=== PATIENT | female | born 1940 | race Caucasian/White ===

== ENCOUNTER 2016-09-28 09:55 | Inpatient (IN) | payer MEDICARE ==
[2016-09-28 10:09] LABS: Glucose,Whole Blood 542 mg/dL (75-99)
--- NOTE | 2016-09-28 10:10 | ED ---
Neuro HPI - General Stated Complaint: Altered Mental Status Time Seen by Provider: 09/28/16 09:55 Source: EMS, RN notes reviewed, old records reviewed Mode of arrival: EMS Limitations: altered mental status, physical limitation - History of Present Illness Is the patient presenting with stroke symptoms?: Yes Last Known Well Date: 09/27/16 Last Known Well Time: 20:00 Initial Comments: This is a 75-year-old female with a recent admission history for TIAs also a history of hypertension diabetes aortic stenosis who was last seen by her family around 8 PM last evening this morning she did not respond and family finder she was found to be minimally responsive of left lower and upper extremity weakness. She is brought in by EMS. Is no reports of any trauma. patient was reported have a blood sugar was markedly elevated. - Related Data Home Medications: Home Medications Medication Instructions Recorded Confirmed Insulin Glargine [Lantus] 40 unit SQ HS 07/17/15 09/28/16 INSULIN LISPRO (humaLOG) [humaLOG 12 units SQ AC-LUNCH 07/27/16 09/28/16 (formulary)] Lisinopril [Prinivil] 20 mg PO DAILY 07/27/16 09/28/16 Aspirin EC [Ecotrin] 325 mg PO HS 09/28/16 09/28/16 Previous Rx's Medication Instructions Recorded Nitroglycerin Sl Tabs [Nitrostat] 0.4 mg SUBLINGUAL Q5M PRN #25 tab 07/22/15 Atorvastatin [Lipitor] 40 mg PO DAILY #30 tab 07/30/16 Carvedilol [Coreg*] 25 mg PO BID-W/MEALS #60 tab 07/30/16 Clopidogrel [Plavix] 75 mg PO DAILY #30 tab 07/30/16 Allergies/Adverse Reactions: Allergies Allergy/AdvReac Type Severity Reaction Status Date / Time No Known Allergies Allergy Verified 07/27/16 19:27 Review of Systems ROS Statement: Those systems with pertinent positive or pertinent negative responses have been documented in the HPI. ROS Other: All systems not noted in ROS Statement are negative. Limitations: ROS unobtainable due to patients medical condition General Exam Limitations: altered mental status, physical limitation General appearance: alert, lethargic Head exam: Present: atraumatic, normocephalic, normal inspection Eye exam: Present: other (Patient does demonstrate right lateral gaze). Absent : normal appearance ENT exam: Present: mucous membranes dry Neck exam: Present: normal inspection. Absent: tenderness, meningismus, lymphadenopathy Respiratory exam: Present: normal lung sounds bilaterally. Absent: respiratory distress, wheezes, rales, rhonchi, stridor Cardiovascular Exam: Present: normal rhythm, tachycardia, normal heart sounds. Absent: systolic murmur, diastolic murmur, rubs, gallop, clicks GI/Abdominal exam: Present: soft, normal bowel sounds. Absent: distended, tenderness, guarding, rebound, rigid Rectal exam: Present: deferred Extremities exam: Present: normal capillary refill. Absent: normal inspection, full ROM Back exam: Present: normal inspection Neurological exam: Present: altered, motor sensory deficit. Absent: CN II-XII intact Psychiatric exam: Present: other (Unable to evaluate) Skin exam: Present: warm, dry, intact, normal color. Absent: rash Stroke [facility] - Lab Data Result diagrams: 09/28/16 10:02 09/28/16 10:02 Lab Results 09/28/16 09/28/16 09/28/16 Range/Units 09:59 10:02 10:02 WBC (3.8-10.6) k/uL RBC (3.80-5.40) m/uL Hgb (11.4-16.0) gm/dL Hct (34.0-46.0) % MCV (80.0-100.0) fL MCH (25.0-35.0) pg MCHC (31.0-37.0) g/dL RDW (11.5-15.5) % Plt Count (150-450) k/uL Neutrophils % % Lymphocytes % % Monocytes % % Eosinophils % % Basophils % % Neutrophils # (1.3-7.7) k/uL Lymphocytes # (1.0-4.8) k/uL Monocytes # (0-1.0) k/uL Eosinophils # (0-0.7) k/uL Basophils # (0-0.2) k/uL Hypochromasia PT (9.0-12.0) sec INR (<1.1) APTT (22.0-30.0) sec Sodium 143 (137-145) mmol/L Potassium 5.4 H (3.5-5.1) mmol/L Chloride 101 (98-107) mmol/L Carbon Dioxide 20 L (22-30) mmol/L Anion Gap 22 mmol/L BUN 29 H (7-17) mg/dL Creatinine 0.72 (0.52-1.04) mg/dL Est GFR (MDRD) Af Amer >60 (>60 ml/min/1.73 sqM) Est GFR (MDRD) Non-Af >60 (>60 ml/min/1.73 sqM) Glucose 549 H* (74-99) mg/dL POC Glucose (mg/dL) 542 H (75-99) mg/dL POC Glu Lacquer Mixer ID Fern Cruz Plasma Lactic Acid Antwon (0.7-2.0) mmol/L Calcium 10.4 H (8.4-10.2) mg/dL Magnesium 1.4 L (1.6-2.3) mg/dL Total Bilirubin 0.7 (0.2-1.3) mg/dL AST 18 (14-36) U/L ALT 26 (9-52) U/L Alkaline Phosphatase 102 (38-126) U/L Total Creatine Kinase 21 L (30-135) U/L CK-MB (CK-2) 0.8 (0.0-2.4) ng/mL CK-MB (CK-2) Rel Index 3.8 Troponin I <0.012 (0.000-0.034) ng/mL Total Protein 7.8 (6.3-8.2) g/dL Albumin 4.3 (3.5-5.0) g/dL Urine Color Urine Appearance (Clear) Urine pH (5.0-8.0) Ur Specific [place] (1.001-1.035) Urine Protein (Negative) Urine Glucose (UA) (Negative) Urine Ketones (Negative) Urine Blood (Negative) Urine Nitrate (Negative) Urine Bilirubin (Negative) Urine Urobilinogen (<2.0) mg/dL Ur Leukocyte Esterase (Negative) Urine RBC (0-5) /hpf Urine WBC (0-5) /hpf Urine Bacteria (None) /hpf Urine Mucus (None) /hpf Acetone, Qual Positive (Negative) Influenza Type A RNA (Not Detectd) Influenza Type B (PCR) (Not Detectd) 09/28/16 09/28/16 09/28/16 Range/Units 10:02 10:02 12:26 WBC 14.2 H (3.8-10.6) k/uL RBC 5.19 (3.80-5.40) m/uL Hgb 14.4 (11.4-16.0) gm/dL Hct 44.9 (34.0-46.0) % MCV 86.6 (80.0-100.0) fL MCH 27.7 (25.0-35.0) pg MCHC 32.0 (31.0-37.0) g/dL RDW 15.1 (11.5-15.5) % Plt Count 202 (150-450) k/uL Neutrophils % 88 % Lymphocytes % 8 % Monocytes % 2 % Eosinophils % 0 % Basophils % 1 % Neutrophils # 12.5 H (1.3-7.7) k/uL Lymphocytes # 1.1 (1.0-4.8) k/uL Monocytes # 0.2 (0-1.0) k/uL Eosinophils # 0.0 (0-0.7) k/uL Basophils # 0.2 (0-0.2) k/uL Hypochromasia Slight PT 10.1 (9.0-12.0) sec INR 1.0 (<1.1) APTT 20.8 L (22.0-30.0) sec Sodium (137-145) mmol/L Potassium (3.5-5.1) mmol/L Chloride (98-107) mmol/L Carbon Dioxide (22-30) mmol/L Anion Gap mmol/L BUN (7-17) mg/dL Creatinine (0.52-1.04) mg/dL Est GFR (MDRD) Af Amer (>60 ml/min/1.73 sqM) Est GFR (MDRD) Non-Af (>60 ml/min/1.73 sqM) Glucose (74-99) mg/dL POC Glucose (mg/dL) 478 H (75-99) mg/dL POC Glu Lacquer Mixer ID Cyn Dodd Plasma Lactic Acid Antwon (0.7-2.0) mmol/L Calcium (8.4-10.2) mg/dL Magnesium (1.6-2.3) mg/dL Total Bilirubin (0.2-1.3) mg/dL AST (14-36) U/L ALT (9-52) U/L Alkaline Phosphatase (38-126) U/L Total Creatine Kinase (30-135) U/L CK-MB (CK-2) (0.0-2.4) ng/mL CK-MB (CK-2) Rel Index Troponin I (0.000-0.034) ng/mL Total Protein (6.3-8.2) g/dL Albumin (3.5-5.0) g/dL Urine Color Urine Appearance (Clear) Urine pH (5.0-8.0) Ur Specific [place] (1.001-1.035) Urine Protein (Negative) Urine Glucose (UA) (Negative) Urine Ketones (Negative) Urine Blood (Negative) Urine Nitrate (Negative) Urine Bilirubin (Negative) Urine Urobilinogen (<2.0) mg/dL Ur Leukocyte Esterase (Negative) Urine RBC (0-5) /hpf Urine WBC (0-5) /hpf Urine Bacteria (None) /hpf Urine Mucus (None) /hpf Acetone, Qual (Negative) Influenza Type A RNA (Not Detectd) Influenza Type B (PCR) (Not Detectd) 09/28/16 09/28/16 09/28/16 Range/Units 12:35 12:35 12:35 WBC (3.8-10.6) k/uL RBC (3.80-5.40) m/uL Hgb (11.4-16.0) gm/dL Hct (34.0-46.0) % MCV (80.0-100.0) fL MCH (25.0-35.0) pg MCHC (31.0-37.0) g/dL RDW (11.5-15.5) % Plt Count (150-450) k/uL Neutrophils % % Lymphocytes % % Monocytes % % Eosinophils % % Basophils % % Neutrophils # (1.3-7.7) k/uL Lymphocytes # (1.0-4.8) k/uL Monocytes # (0-1.0) k/uL Eosinophils # (0-0.7) k/uL Basophils # (0-0.2) k/uL Hypochromasia PT (9.0-12.0) sec INR (<1.1) APTT (22.0-30.0) sec Sodium (137-145) mmol/L Potassium (3.5-5.1) mmol/L Chloride (98-107) mmol/L Carbon Dioxide (22-30) mmol/L Anion Gap mmol/L BUN (7-17) mg/dL Creatinine (0.52-1.04) mg/dL Est GFR (MDRD) Af Amer (>60 ml/min/1.73 sqM) Est GFR (MDRD) Non-Af (>60 ml/min/1.73 sqM) Glucose (74-99) mg/dL POC Glucose (mg/dL) (75-99) mg/dL POC Glu Lacquer Mixer ID Plasma Lactic Acid Antwon 2.3 H* (0.7-2.0) mmol/L Calcium (8.4-10.2) mg/dL Magnesium (1.6-2.3) mg/dL Total Bilirubin (0.2-1.3) mg/dL AST (14-36) U/L ALT (9-52) U/L Alkaline Phosphatase (38-126) U/L Total Creatine Kinase (30-135) U/L CK-MB (CK-2) (0.0-2.4) ng/mL CK-MB (CK-2) Rel Index Troponin I (0.000-0.034) ng/mL Total Protein (6.3-8.2) g/dL Albumin (3.5-5.0) g/dL Urine Color Light Yellow Urine Appearance Clear (Clear) Urine pH 5.5 (5.0-8.0) Ur Specific [place] 1.019 (1.001-1.035) Urine Protein 2+ H (Negative) Urine Glucose (UA) 4+ H (Negative) Urine Ketones 2+ H (Negative) Urine Blood Small H (Negative) Urine Nitrate Negative (Negative) Urine Bilirubin Negative (Negative) Urine Urobilinogen <2.0 (<2.0) mg/dL Ur Leukocyte Esterase Small H (Negative) Urine RBC 17 H (0-5) /hpf Urine WBC 23 H (0-5) /hpf Urine Bacteria Rare H (None) /hpf Urine Mucus Rare H (None) /hpf Acetone, Qual (Negative) Influenza Type A RNA Not Detected (Not Detectd) Influenza Type B (PCR) Not Detected (Not Detectd) 09/28/16 Range/Units 13:37 WBC (3.8-10.6) k/uL RBC (3.80-5.40) m/uL Hgb (11.4-16.0) gm/dL Hct (34.0-46.0) % MCV (80.0-100.0) fL MCH (25.0-35.0) pg MCHC (31.0-37.0) g/dL RDW (11.5-15.5) % Plt Count (150-450) k/uL Neutrophils % % Lymphocytes % % Monocytes % % Eosinophils % % Basophils % % Neutrophils # (1.3-7.7) k/uL Lymphocytes # (1.0-4.8) k/uL Monocytes # (0-1.0) k/uL Eosinophils # (0-0.7) k/uL Basophils # (0-0.2) k/uL Hypochromasia PT (9.0-12.0) sec INR (<1.1) APTT (22.0-30.0) sec Sodium (137-145) mmol/L Potassium (3.5-5.1) mmol/L Chloride (98-107) mmol/L Carbon Dioxide (22-30) mmol/L Anion Gap mmol/L BUN (7-17) mg/dL Creatinine (0.52-1.04) mg/dL Est GFR (MDRD) Af Amer (>60 ml/min/1.73 sqM) Est GFR (MDRD) Non-Af (>60 ml/min/1.73 sqM) Glucose (74-99) mg/dL POC Glucose (mg/dL) 463 H (75-99) mg/dL POC Glu Lacquer Mixer ID Cyn Dodd Plasma Lactic Acid Antwon (0.7-2.0) mmol/L Calcium (8.4-10.2) mg/dL Magnesium (1.6-2.3) mg/dL Total Bilirubin (0.2-1.3) mg/dL AST (14-36) U/L ALT (9-52) U/L Alkaline Phosphatase (38-126) U/L Total Creatine Kinase (30-135) U/L CK-MB (CK-2) (0.0-2.4) ng/mL CK-MB (CK-2) Rel Index Troponin I (0.000-0.034) ng/mL Total Protein (6.3-8.2) g/dL Albumin (3.5-5.0) g/dL Urine Color Urine Appearance (Clear) Urine pH (5.0-8.0) Ur Specific [place] (1.001-1.035) Urine Protein (Negative) Urine Glucose (UA) (Negative) Urine Ketones (Negative) Urine Blood (Negative) Urine Nitrate (Negative) Urine Bilirubin (Negative) Urine Urobilinogen (<2.0) mg/dL Ur Leukocyte Esterase (Negative) Urine RBC (0-5) /hpf Urine WBC (0-5) /hpf Urine Bacteria (None) /hpf Urine Mucus (None) /hpf Acetone, Qual (Negative) Influenza Type A RNA (Not Detectd) Influenza Type B (PCR) (Not Detectd) - NIH Stroke Scale 1a. Level of Consciousness: (2) not alert, rep stimuli 1b. LOC Questions: (2) answers no questions correctly 1c. LOC Commands: (2) performs no tasks correctly 2. Best Gaze: (2) forced deviation 3. Visual: (1) partial hemianopia 4. Facial Palsy: (1) minor paralysis 5a. Motor Arm Left: (4) no movement 5b. Motor Arm Right: (0) no drift 6a. Motor Leg Left: (3) no gravity effort 6b. Motor Leg Right: (3) no gravity effort 7. Limb Ataxia: (0) absent 8. Sensory: (2) severe/total sensory loss 9. Best Language: (2) severe aphasia 10. Dysarthria: (un) intubated/barrier 11. Extinction/Inattention: (0) no abnormality - Thrombolytic Inclusion/Exclusion Thrombolytic Exclusion Criteria: Onset of Symptoms Unknown - Medical Decision Making I did discuss the findings with the patient and with her family members. Patient will be admitted to be admitted to intensive care unit did discuss this with Dr. Houser and Dr. Lockwood. - EKG Data -: EKG Interpreted by Me EKG shows normal: sinus rhythm (Sinus tachycardia with a rate of 118. 150 QRS duration 86 daily since QTC of 322/451 evidence a left anterior fascicular block old inferior changes no acute ST T wave elevations or depressions) Past Medical History Past Medical History: Diabetes Mellitus, Hypertension Additional Past Medical History / Comment(s): AORTIC STENOSIS History of Any Multi-Drug Resistant Organisms: None Reported Past Surgical History: Adenoidectomy, Appendectomy, Cholecystectomy, Heart Catheterization With Stent, Hernia Repair, Tonsillectomy Additional Past Surgical History / Comment(s): Bilateral cataract removal and lens implants, umbilical hernia repair. 04/26/15 RIGHT GREAT TOE AMPUTATION. Past Anesthesia/Blood Transfusion Reactions: No Reported Reaction Additional Past Anesthesia/Blood Transfusion Reaction / Comment(s): no reported recation Date of Last Stent Placement:: 2009 Past Psychological History: No Psychological Hx Reported Smoking Status: Former smoker Past Alcohol Use History: None Reported Additional Past Alcohol Use History / Comment(s): Patient was a smoker for 18 years and quit when she was 40. She denies any medical marijuana, marijuana, street drug use or alcohol use. Patient lives at home and her son and granddaughter live with her. There are 2 dogs in the home. She denies any recent travel. 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 Past Drug Use History: None Reported Additional Drug Use History / Comment(s): STARTED SMOKING AT AGE 22 YRS, QUIT AT AGE 40YRS. - Past Family History Mother History Unknown: Yes Family Medical History: Cancer Father History Unknown: Yes Family Medical History: Coronary Artery Disease (CAD), Diabetes Mellitus Course Vital Signs 09/28/16 09/28/16 09/28/16 10:17 10:25 11:40 Temperature 99.6 F 101.9 F H Pulse Rate 118 H 96 Respiratory 14 18 Rate Blood Pressure 234/110 181/80 O2 Sat by Pulse 95 93 L Oximetry 09/28/16 09/28/16 09/28/16 12:40 12:59 13:40 Temperature 102.5 F H 102.1 F H Pulse Rate 96 98 Respiratory 20 18 Rate Blood Pressure 199/84 185/81 160/67 O2 Sat by Pulse 94 L 95 Oximetry - Reevaluation(s) Reevaluation #1: 09/28/16 14:12 Reevaluation after return from CAT scan reveals some improvement in the patient' s mentation. Reevaluation #2: 09/28/16 14:13 Did reevaluate the patient multiple occasions and did discuss findings with her sons. On discussion with one son (Ed) revealed the patient was no code and no event unless it was a very short time in for a reversible reason Reevaluation #3: 09/28/16 14:[address] in the x-ray show no acute findings Reevaluation #4: 09/28/16 14:20 The patient's lactic acid was noted to be slightly elevated there does not appear at this time to be an infectious source however x-ray urine is unremarkable. Influenza is negative. This is likely due to volume depletion. Reevaluation #5: 09/28/16 14:21 Patient is improving she is more responsive more facial movement the right lateral gaze has improved Critical Care Time Critical Care Time: Yes Critical Care Time: 49 minutes of critical care time which included the initial monitoring of the EMS run and evaluation the patient with history physical lab and x-rays as well as CAT scan orders. This with paramedics. Multiple re-evaluations the patient. Patient did demonstrate improvement should be noted. Discussed with the family members including the CODE STATUS. Discussion with the admitting physician and the flame degreaser. Patient will be admitted with consultation by neurology. Disposition Clinical Impression: Cerebrovascular accident, Diabetic ketoacidosis, Febrile illness, acute, Febrile illness, acute, Lactic acidosis Disposition: ADMITTED IP TO THIS HOSP Condition: Serious
[2016-09-28 10:19] LABS: Basophils # (A) 0.2 k/uL (0-0.2); Basophils % (A) 1 %; CH 27.1; CHCM 31.4; Eosinophils % (A) 0 %; HCT 44.9 % (34.0-46.0); HDW 2.75; HGB 14.4 gm/dL (11.4-16.0); Hypochromasia Slight; Luc # (Auto) 0.14; Luc % (Auto) 1; Lymphocytes # (A) 1.1 k/uL (1.0-4.8); Lymphocytes % (A) 8 %; MCH 27.7 pg (25.0-35.0); MCV 86.6 fL (80.0-100.0); Mean Platelet Volume 10.2; Monocytes # (A) 0.2 k/uL (0-1.0); Monocytes % (A) 2 %; Neutrophils # (A) 12.5 k/uL (1.3-7.7); Neutrophils % (A) 88 %; RBC 5.19 m/uL (3.80-5.40); RDW 15.1 % (11.5-15.5); WBC 14.2 k/uL (3.8-10.6); WBC (Perox) 14.18
[2016-09-28] MEDS ORDERED: SODIUM CHLORIDE 0.9% 500 ML IV STA (10:19)
[2016-09-28] MEDS ORDERED: LABETALOL SYRINGE 5 MG/ML IVP STA ×2 (10:19→10:47)
--- NOTE | 2016-09-28 10:32 | CT ---
EXAMINATION TYPE: CT brain wo con for TPA DATE OF EXAM: 09/28/2016 10:19 AM COMPARISON: Prior CT brain 20 July 2016 HISTORY: Decreased mental status. History of CVA CT DLP: 1247 mGycm Automated exposure control for dose reduction was used. FINDINGS: There is no acute intracranial hemorrhage, mass effect, or midline shift identified. The ventricles and sulci are within normal limits in size. There is cortical atrophy. Periventricular white matter l ow-attenuation is again noted. The globes are intact and the visualized sinuses are remarkable for op acification of the left maxillary sinus. IMPRESSION: No acute intracranial hemorrhage, mass effect, or midline shift is seen.
[2016-09-28 10:34] LABS: Partial Thromboplastin Time 20.8 sec (22.0-30.0); Prothrombin Time 10.1 sec (9.0-12.0)
[2016-09-28 10:41] LABS: ALT 26 U/L (9-52); AST 18 U/L (14-36); Alkaline Phosphatase 102 U/L (38-126); Anion Gap 22 mmol/L; Blood Urea Nitrogen 29 mg/dL (7-17); Calcium 10.4 mg/dL (8.4-10.2); Carbon Dioxide 20 mmol/L (22-30); Chloride 101 mmol/L (98-107); Magnesium 1.4 mg/dL (1.6-2.3); Non-African American GFR(MDRD) >60 (>60 ml/min/1.73 sqM); Potassium 5.4 mmol/L (3.5-5.1); Sodium 143 mmol/L (137-145); Total Bilirubin 0.7 mg/dL (0.2-1.3); Total Protein 7.8 g/dL (6.3-8.2)
[2016-09-28 10:46] LABS: Creatine Kinase 21 U/L (30-135)
[2016-09-28] MEDS ORDERED: SODIUM CHLORIDE 0.9% 1,000 ML IV STA (10:46)
[2016-09-28 10:50] LABS: Glucose 549 mg/dL (74-99)
[2016-09-28 10:59] LABS: Creatine Kinase MB 0.8 ng/mL (0.0-2.4); Troponin I <0.012 ng/mL (0.000-0.034)
[2016-09-28] MEDS ORDERED: INSULIN REGULAR 100 UNIT in SODIUM CHLORIDE 0.9% 100 ML IV ONE (11:18)
--- NOTE | 2016-09-28 11:21 | XR ---
EXAMINATION TYPE: XR chest 1V DATE OF EXAM: 09/28/2016 11:10 AM COMPARISON: Prior chest x-ray July HISTORY: Altered mental status TECHNIQUE: Single frontal view of the chest is obtained. FINDINGS: Patient is rotated and there are overlying cardiac leads. No airspace disease, pneumothora x, or pleural effusion. Cardiac mediastinal silhouette, pulmonary vascularity and sajan are stable. IMPRESSION: No acute process.
[2016-09-28] MEDS ORDERED: ACETAMINOPHEN IV (For NPO) 1,000 MG in EMPTY BAG 1 BAG IVPB STA (11:42)
[2016-09-28] MEDS ORDERED: MAGNESIUM SULFATE-D5W PMX 1 GM in DEXTROSE/WATER 1 100ML.BAG IVPB ONE (12:00)
[2016-09-28] MEDS: SODIUM CHLORIDE 0.9% 1,000 ML IV SCH ×2 (12:30→21:23)
[2016-09-28 12:36] LABS: Glucose,Whole Blood 478 mg/dL (75-99)
[2016-09-28 13:06] LABS: Appearance,Urine Clear (Clear); Bacteria,Urine Rare /hpf; Bilirubin,Urine Negative (Negative); Glucose,Urine (UA) 4+ (Negative); Leukocyte Esterase,Urine Small (Negative); Mucus,Urine Rare /hpf; Nitrite,Urine Negative (Negative); PH, Urine 5.5 (5.0-8.0); Particle Count 1163; Protein,Urine 2+ (Negative); RBC,Urine 17 /hpf (0-5); Specific Gravity,Urine 1.019 (1.001-1.035); UA Billing (MACRO vs. MICRO) MICRO; Urobilinogen,Urine <2.0 mg/dL (<2.0); WBC,Urine 23 /hpf (0-5)
[2016-09-28 13:18] LABS: Ketones,Urine 2+ (Negative)
[2016-09-28 13:47] LABS: Glucose,Whole Blood 463 mg/dL (75-99)
[2016-09-28 15:05] LABS: Glucose,Whole Blood 443 mg/dL (75-99)
[2016-09-28 15:53] LABS: Glucose,Whole Blood 401 mg/dL (75-99)
[2016-09-28 17:12] LABS: Glucose,Whole Blood 342 mg/dL (75-99)
--- NOTE | 2016-09-28 17:51 | P.CNPUL ---
History of Present Illness Consult date: 09/28/16 Requesting physician: Josiah Houser Reason for consult: other (Acute CVA) Chief complaint: Mental status change History of present illness: This is a 75-year-old female with history of multiple medical problems including hypertension, diabetes, hyperlipidemia, valvular heart disease with moderate severe aortic based on a recent echocardiogram, stenosis, history of multiple transient ischemic attacks, and the last one was in late July of 2016. Back then the patient had extensive workup included CT angiogram of the neck, echocardiogram, CT head, MRI, MRA, and these were all negative. At that time the patient presented with expressive aphasia, slurred speech, patient was eventually discharged home on Plavix. Patient normally lives with her son and his girlfriend, and today he tried to get into the house, patient was inside the house and she was unresponsive. When the police and family members entered the house, she was found unresponsive, she was noted to have left upper and left lower extremity weakness. And she was obtunded. Patient was brought into the ER, CT of the brain was negative. Blood sugar was elevated, patient had positive ketones, hence the patient was placed on the DKA protocol, received fluid boluses, and now she is on insulin drip. Her mental status is not improving much since arrival to the ER, patient is unresponsive except once in a while she may open her eyes, but they seem to be deviated to the right side. Continues to have significant weakness on the left side. And patient is not following any instructions whatsoever. Pupils are reactive. Patient has a good gag reflex, and she has a left sided miguel-plegia. Review of Systems ROS unobtainable: due to mental status Past Medical History Past Medical History: Coronary Artery Disease (CAD), Chest Pain / Angina, COPD, Diabetes Mellitus, Hypertension Additional Past Medical History / Comment(s): Pt admitted to [facility] with slurred speech, expressive aphasia 2ndary to TIA which resolved. During that hospitalization, son states pt had problems with "sun downers" and got up in the night and walked around, AORTIC STENOSIS, murmur, IDDM type II, peripheral neuropathy, UTIs, diverticular disease, hemorrhoids, varicosities, arthritis-c/ o hip pain, past osteomylitis R great toe with toe amputation History of Any Multi-Drug Resistant Organisms: None Reported Past Surgical History: Adenoidectomy, Appendectomy, Cholecystectomy, Heart Catheterization With Stent, Hernia Repair, Tonsillectomy Additional Past Surgical History / Comment(s): Bilateral cataract removal and lens implants, laser eye surgery, umbilical hernia repair, 04/26/15 RIGHT GREAT TOE AMPUTATION, colonoscopy. Past Anesthesia/Blood Transfusion Reactions: No Reported Reaction Additional Past Anesthesia/Blood Transfusion Reaction / Comment(s): no reported recation Date of Last Stent Placement:: 2009 Past Psychological History: No Psychological Hx Reported Additional Psychological History / Comment(s): Pt's son and granddaughter live with her. She uses a rolling walker to ambulate. She no longer drives-her son takes her to [employer]. She has just been set up with [id number]. There are 2 dogs in the house. No recent travel. 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 Smoking Status: Former smoker Past Alcohol Use History: None Reported Additional Past Alcohol Use History / Comment(s): Patient was a smoker for 18 years and quit when she was 40. Past Drug Use History: None Reported Additional Drug Use History / Comment(s): STARTED SMOKING AT AGE 22 YRS, QUIT AT AGE 40YRS. - Past Family History Mother History Unknown: Yes Family Medical History: Cancer Father History Unknown: Yes Family Medical History: Coronary Artery Disease (CAD), Diabetes Mellitus Medications and Allergies Home Medications Medication Instructions Recorded Confirmed Type Insulin Glargine [Lantus] 40 unit SQ HS 07/17/15 09/28/16 History INSULIN LISPRO (humaLOG) [humaLOG 12 units SQ AC-LUNCH 07/27/16 09/28/16 History (formulary)] Lisinopril [Prinivil] 20 mg PO DAILY 07/27/16 09/28/16 History Aspirin EC [Ecotrin] 325 mg PO HS 09/28/16 09/28/16 History Allergies Allergy/AdvReac Type Severity Reaction Status Date / Time No Known Allergies Allergy Verified 07/27/16 19:27 Physical Exam Vitals: Vital Signs Temp Pulse Resp BP Pulse Ox 09/28/16 16:45 99 30 H 142/68 93 L 09/28/16 16:30 98 24 146/57 93 L 09/28/16 16:15 99 33 H 128/58 97 09/28/16 16:03 96 09/28/16 16:00 99 24 154/63 92 L 09/28/16 15:53 101 H 16 154/63 98 09/28/16 14:45 99 18 166/72 93 L 09/28/16 14:40 98.8 F 99 18 166/72 95 Intake and Output 09/28/16 09/28/16 09/28/16 06:59 14:59 22:59 Intake Total 4.444 131.902 Output Total 200 Balance 4.444 -68.098 Intake: IV 125 Sodium Chloride 0.9% 1, 125 000 ml @ 125 mls/hr IV . Q8H TAMIKO Rx#:[id number] Intake, IV Titration 4.444 6.902 Amount Insulin Regular 100 unit 4.444 6.902 In Sodium Chloride 0.9% 100 ml @ 3 UNIT/HR 3.03 mls/hr IV .Q24H ONE Rx#: [id number] Output: Urine 200 Other: Weight 78.6 kg Patient Weight 09/29/16 06:59 Weight 78.6 kg Physical Exam: Revealed a 75-year-old female, obtunded, pupils equally reactive to light, both eyes are deviated to the right side good gag reflex, HEENT:[Neck is supple.] [No neck masses.] [No thyromegaly.] [No JVD.] Good gag reflex was noted. Chest: [Clear throughout, no crackles, no rhonchi, no wheezes.] Cardiac Exam: [Normal S1 and S2, no S3 gallop, no murmur.] Abdomen: [Soft, nontender, no megaly, no rebound, no guarding, normal bowel sounds.] Extremities: [No clubbing, no edema, no cyanosis.] Neurological Exam: Dense left-sided hemiplegia was noted. Pupils equally reactive to light deviation of both eyes to the right side. Unable to follow any instructions. Results - Laboratory Findings CBC and BMP: 09/28/16 10:02 09/28/16 10:02 PT/INR, D-dimer PT 10.1 sec (9.0-12.0) 09/28/16 10:02 INR 1.0 (<1.1) 09/28/16 10:02 Abnormal lab findings: Abnormal Labs 09/28/16 09/28/16 09/28/16 14:45 15:51 17:11 POC Glucose (mg/dL) 443 H 401 H 342 H - Diagnostic Findings Chest x-ray: image reviewed (No evidence of active disease) Additional studies: CT brain showed no intracranial hemorrhage, no mass effect, no abnormality noted except for some cortical atrophy. Assessment and Plan Plan: Impression: 1 acute right hemispheric CVA with left-sided weakness. 2 acute diabetic ketoacidosis 3 acute urinary tract infection is suspected 4 history of multiple comorbidities including previous TIAs, severe aortic stenosis, hypertension, hyperlipidemia, diabetes, Recommendation: Continue present treatment plan, neurology consultation was initiated, follow the DKA protocol, empiric antibiotics for presumptive urinary tract infection, close monitoring in the ICU. GI and DVT prophylaxis. Neuro checks every one hour, Discussed CODE STATUS with the family at bedside, patient is DO NOT RESUSCITATE at present. This is based on her previously expressed wishes and the wishes of her son. Prognosis is guarded, will continue to follow. Critical care time is 32 minutes Time with Patient: Greater than 30
[2016-09-28 18:43] LABS: Glucose,Whole Blood 270 mg/dL (75-99)
[2016-09-28 20:09] LABS: Glucose,Whole Blood 183 mg/dL (75-99)
[2016-09-28] MEDS: PANTOPRAZOLE 40 MG/10 ML VIAL IVP SCH (20:25)
[2016-09-28] MEDS ORDERED: D5-0.45% NACL WITH KCL 20MEQ/L 1,000 ML IV SCH (20:30)
[2016-09-28 21:04] LABS: Glucose,Whole Blood 143 mg/dL (75-99)
[2016-09-28 21:13] LABS: Anion Gap 14 mmol/L; Blood Urea Nitrogen 35 mg/dL (7-17); Carbon Dioxide 23 mmol/L (22-30); Chloride 110 mmol/L (98-107); Glucose 165 mg/dL (74-99); Non-African American GFR(MDRD) >60 (>60 ml/min/1.73 sqM); Phosphorous 2.7 mg/dL (2.5-4.5); Potassium 4.2 mmol/L (3.5-5.1); Sodium 147 mmol/L (137-145)
[2016-09-28] MEDS ORDERED: ACETAMINOPHEN IV (For NPO) 1,000 MG in EMPTY BAG 1 BAG IVPB ONE (21:30)
--- NOTE | 2016-09-28 21:55 | P.CNNES ---
History of Present Illness Consult date: 09/28/16 Reason for Consult: Patient found unresponsive with DKA and possible stroke. History of Present Illness: This patient is a 75-year-old right-handed white female who apparently was last known to be alert and oriented at 8 PM yesterday evening. Apparently she had talked to her family around that time. This morning the son had called the home and there was no response. He went to check on her apparently EMS was also called as well as a fire Department. She was found collapsed in her home. The please were able to break the door down and they were able to get in to assist her. She was noted to have left-sided weakness on initial evaluation by EMS. She was very lethargic and obtunded. EMS was at the scene and immediately assisted her and brought her immediately to the emergency room for further evaluation. She was seen in the ER by Dr. Fowler. She was noted to have obtundation with elevated lactic acid levels. Laboratory testing revealed her to have evidence of diabetic ketoacidosis. She was started on an insulin drip. She did not show much improvement in the ER and was sent for a computed tomography scan of the brain. CAT scan of the brain was completed and revealed no acute intracranial hemorrhage or mass effect. No evidence of acute stroke was noted. The patient was further evaluated in the ER. Her NIH stroke scale was elevated. She was not a TPA candidate as her time of onset of symptoms was unknown. In the ER she was also showing signs of right lateral gaze preference. She did show some slight improvement but appeared to be slightly aphasic in the ER. She was then transferred to the intensive care unit and was maintained on the insulin drip. Patient apparently has a history of TIA and stroke like symptoms in July of last year. She underwent a extensive workup in July 2016 which included CTA angiogram of the neck and head as well as MRI MRA all of these tests were reported negative. She is currently on a combination of Plavix and aspirin for secondary stroke prevention. Patient is examined in the intensive care unit. She is noted to be globally aphasic. She has a left-sided facial droop. She has gaze deviation to the right. She does not follow commands. Apparently the family has made her no CODE STATUS. She does seem to follow some commands and tries to speak but it is very slurred and on comprehensible. Initially her blood sugars in the ER were 342. Repeat glucose testing in the ICU reveals 143 blood sugar this evening. According to the ICU nursing staff she has shown only slight improvement throughout the day. He shouldn't is now admitted and neurology has been consulted for further evaluation and recommendations. Review of Systems Constitutional: Denies chills, Denies fever Eyes: denies blurred vision, denies pain Ears, nose, mouth and throat: Denies headache, Denies sore throat Cardiovascular: Denies chest pain, Denies shortness of breath Respiratory: Denies cough Gastrointestinal: Denies abdominal pain, Denies diarrhea, Denies nausea, Denies vomiting Genitourinary: Denies dysuria, Denies hematuria Musculoskeletal: Denies myalgias Integumentary: Denies pruritus, Denies rash Neurological: Reports aphasia, Reports change in mentation, Reports confusion, Reports lack of coordination, Reports paralysis, Reports visual changes, Denies numbness, Denies weakness Psychiatric: Denies anxiety, Denies depression Endocrine: Denies fatigue, Denies weight change Past Medical History Past Medical History: Coronary Artery Disease (CAD), Chest Pain / Angina, COPD, Diabetes Mellitus, Hypertension Additional Past Medical History / Comment(s): Pt admitted to [facility] with slurred speech, expressive aphasia 2ndary to TIA which resolved. During that hospitalization, son states pt had problems with "sun downers" and got up in the night and walked around, AORTIC STENOSIS, murmur, IDDM type II, peripheral neuropathy, UTIs, diverticular disease, hemorrhoids, varicosities, arthritis-c/ o hip pain, past osteomylitis R great toe with toe amputation History of Any Multi-Drug Resistant Organisms: None Reported Past Surgical History: Adenoidectomy, Appendectomy, Cholecystectomy, Heart Catheterization With Stent, Hernia Repair, Tonsillectomy Additional Past Surgical History / Comment(s): Bilateral cataract removal and lens implants, laser eye surgery, umbilical hernia repair, 04/26/15 RIGHT GREAT TOE AMPUTATION, colonoscopy. Past Anesthesia/Blood Transfusion Reactions: No Reported Reaction Additional Past Anesthesia/Blood Transfusion Reaction / Comment(s): no reported recation Date of Last Stent Placement:: 2009 Past Psychological History: No Psychological Hx Reported Additional Psychological History / Comment(s): Pt's son and granddaughter live with her. She uses a rolling walker to ambulate. She no longer drives-her son takes her to [employer]. She has just been set up with [id number]. There are 2 dogs in the house. No recent travel. 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 Smoking Status: Former smoker Past Alcohol Use History: None Reported Additional Past Alcohol Use History / Comment(s): Patient was a smoker for 18 years and quit when she was 40. Past Drug Use History: None Reported Additional Drug Use History / Comment(s): STARTED SMOKING AT AGE 22 YRS, QUIT AT AGE 40YRS. - Past Family History Mother History Unknown: Yes Family Medical History: Cancer Father History Unknown: Yes Family Medical History: Coronary Artery Disease (CAD), Diabetes Mellitus Medications and Allergies Home Medications Medication Instructions Recorded Confirmed Type Insulin Glargine [Lantus] 40 unit SQ HS 07/17/15 09/28/16 History INSULIN LISPRO (humaLOG) [humaLOG 12 units SQ AC-LUNCH 07/27/16 09/28/16 History (formulary)] Lisinopril [Prinivil] 20 mg PO DAILY 07/27/16 09/28/16 History Aspirin EC [Ecotrin] 325 mg PO HS 09/28/16 09/28/16 History Allergies Allergy/AdvReac Type Severity Reaction Status Date / Time No Known Allergies Allergy Verified 07/27/16 19:27 Physical Examination - Vital Signs Vital Signs: Vital Signs Temp Pulse Resp BP Pulse Ox 09/28/16 20:30 103 H 26 H 119/82 97 09/28/16 20:00 102 H 27 H 153/54 09/28/16 19:30 101 H 29 H 145/71 09/28/16 19:00 103 H 30 H 146/59 93 L 09/28/16 18:45 100 25 H 154/97 95 09/28/16 18:30 100 25 H 155/59 95 09/28/16 18:15 101 H 33 H 144/62 94 L 09/28/16 18:00 103 H 31 H 147/70 93 L 09/28/16 17:45 100 32 H 120/70 93 L 09/28/16 17:30 103 H 32 H 140/60 94 L 09/28/16 17:15 100 27 H 121/61 94 L 09/28/16 17:00 100 29 H 150/73 94 L 09/28/16 16:45 99 30 H 142/68 93 L 09/28/16 16:30 98 24 146/57 93 L 09/28/16 16:15 99 33 H 128/58 97 09/28/16 16:03 96 09/28/16 16:00 99 22 154/63 92 L 09/28/16 15:53 101 H 16 154/63 98 09/28/16 14:45 99 18 166/72 93 L 09/28/16 14:40 98.8 F 99 18 166/72 95 Intake and Output 09/28/16 09/28/16 09/28/16 06:59 14:59 22:59 Intake Total 4.444 837.255 Output Total 405 Balance 4.444 432.255 Intake: IV 825 Sodium Chloride 0.9% 1, 825 000 ml @ 150 mls/hr IV . Q6H40M [facility] Rx#:[id number] Intake, IV Titration 4.444 12.255 Amount Insulin Regular 100 unit 4.444 12.255 In Sodium Chloride 0.9% 100 ml @ 3 UNIT/HR 3.03 mls/hr IV .Q24H ONE Rx#: [id number] Output: Urine 405 Other: Voiding Method Indwelling Catheter Weight 78.6 kg Patient Weight 09/29/16 06:59 Weight 78.6 kg - Constitutional General appearance: average body habitus, cooperative - EENT EENT: PERRL, mucous membranes moist - Respiratory Respiratory: lungs clear, normal breath sounds - Cardiovascular Cardiovascular: regular rate, normal S1, normal S2 Extremities: no peripheral edema bilaterally - Gastrointestinal Gastrointestinal: normoactive bowel sounds - Integumentary Integumentary: normal - Neurologic Cranial nerve examination: PERRL, VFF, V1/V2/V3 grossly intact, tongue midline, intact gag reflex, facial droop (Patient has a left upper motor neuron facial weakness.), normal palatal elevation Speech examination: global aphasia Sensorimotor examination: flaccid paralysis, hemiparesis, hemineglect Motor examination - right side: 15: biceps, triceps, wrist flexion, wrist extension, fish hatchery inspector, hip flexors, knee extensors, dorsiflexion, toe extension (EHL) , plantarflexion Motor examination - left side: 5/5: biceps, triceps, wrist flexion, wrist extension, fish hatchery inspector, hip flexors, knee extensors, dorsiflexion, toe extension (EHL) , plantarflexion Detailed sensory examination: intact Reflex and gait examination: intact Reflexes: 1+: ankle, bicep, knee, tricep - Musculoskeletal Musculoskeletal: no pain - Psychiatric Psychiatric: mood/affect appropriate, cooperative Results - Laboratory Findings CBC and BMP: 09/28/16 10:02 09/28/16 20:28 Abnormal Lab Findings: Abnormal Labs 09/28/16 09/28/16 09/28/16 14:45 15:51 16:59 POC Glucose (mg/dL) 443 H 401 H Plasma Lactic Acid Antwon 2.1 H 09/28/16 09/28/16 09/28/16 17:11 18:41 20:07 POC Glucose (mg/dL) 342 H 270 H 183 H Plasma Lactic Acid Antwon 09/28/16 21:02 POC Glucose (mg/dL) 143 H Plasma Lactic Acid Antwon Assessment and Plan (1) Acute right arterial ischemic stroke, MCA (middle cerebral artery) Status: Acute Code(s): I63.511 - CEREB INFRC D/T UNSP OCCLS OR STENOS OF RIGHT MID CEREB ART (2) Diabetic ketoacidosis Status: Acute Code(s): E13.10 - OTH DIABETES MELLITUS WITH KETOACIDOSIS WITHOUT COMA (3) Transient cerebral ischemia Status: Acute Code(s): G45.9 - TRANSIENT CEREBRAL ISCHEMIC ATTACK, UNSPECIFIED (4) Hyperlipemia Status: Chronic Code(s): E78.5 - HYPERLIPIDEMIA, UNSPECIFIED Plan: This patient is a 75-year-old female who was found unresponsive in her home early this morning by her son. She was resuscitated and brought into the emergency room where she was found to be very lethargic with left-sided hemiparesthesias. She was sent for a computed tomography scan of the brain which failed to reveal any evidence of acute stroke. She was found to have evidence of diabetic ketoacidosis and was started on insulin drip and admitted to the ICU. Her initial blood sugar in the ER was 342. In the ICU she remains very lethargic and aphasic. She has left-sided hemiparesis with left facial droop. She is not following multistep commands. Her clinical history suggesting acute right MCA stroke. We have recommended a complete stroke evaluation for the patient. As per family wishes she has been made no CODE STATUS. We will continue close neurological follow-up with this patient in the ICU. Her overall prognosis at this time remains very guarded. Time with Patient: Greater than 30
[2016-09-28 22:04] LABS: Glucose,Whole Blood 149 mg/dL (75-99)
[2016-09-28 23:00] LABS: Glucose,Whole Blood 138 mg/dL (75-99)
[2016-09-28] MEDS: ENOXAPARIN 40 MG/0.4 ML SYRINGE SQ SCH (23:27)
[2016-09-28] MEDS: ASPIRIN 300 MG SUPP RECTAL SCH (23:27)
[2016-09-28] MEDS: CARVEDILOL 12.5 MG TAB PO SCH (23:29)
[2016-09-28] MEDS: CLOPIDOGREL 75 MG TAB PO SCH (23:29)
--- NOTE | 2016-09-28 23:48 | HP ---
DATE OF ADMISSION: 09/28/2016 PRESENTING COMPLAINT: Found unconscious. HISTORY OF PRESENTING COMPLAINT: This is a 75-year-old patient of Dr. Malcolm Phan, whose chronic stable medical conditions include COPD, hypertension, hyperlipidemia, osteoarthritis, peripheral neuropathy, coronary artery disease with stent, TIA in July. The patient was last seen yesterday at 8:00. This morning the patient did not pick up attendant the phone. The police came and found the patient on the floor. The patient was found to have a dense stroke on the left side. The patient was mumbling some words, moving the right side. The patient's sugar was found to be in the 400s. Also had a fever of 101. The patient did get a dose of ceftriaxone in the ER. Patient was admitted to the ICU. REVIEW OF SYSTEMS: Patient cannot talk. PAST MEDICAL HISTORY: COPD, diabetes, hypertension, hyperlipidemia, osteoarthritis, peripheral neuropathy, right big toe osteomyelitis, coronary artery disease with stent, moderate aortic stenosis. The patient did have a TIA in July, at that time the patient's workup included MRI of the brain that showed atrophy. A 2-D echo showed preserved ejection fraction. MRA was negative. PAST SURGICAL HISTORY: 1. Adenoidectomy. 2. Appendectomy. 3. Cholecystectomy. 4. Cardiac cath with stent. 5. Hernia repair. 6. Tonsillectomy. 7. Bilateral cataract removal. 8. Umbilical hernia repair. 9. Right great toe amputation. SOCIAL HISTORY: The patient's son and granddaughter live with her. She uses a rolling walker to get about. She was getting Meals on Wheels. 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 The patient smoked for 18 years, quit when she was 40 years of age. FAMILY HISTORY: Cancer. HOME MEDICATIONS: 1. Lispro 20 units subcu with lunch. 2. Aspirin 325 p.o. at bedtime. 3. Nitrostat 0.4 sublingual every 5 p.r.n. 4. Prinivil 20 mg p.o. daily. 5. Lantus 40 units subcu at bedtime. 6. Plavix 75 mg p.o. daily. 7. Coreg 25 mg p.o. b.i.d. with meals. 8. Lipitor 40 mg p.o. daily. ALLERGIES: None. On examination, T-max 102.1, pulse ox 98, respirations 18, blood pressure 160/67, pulse ox 95% on 2 L. GENERAL APPEARANCE: Well built, lying in bed. Moving about. EYES: Pupils equal. Conjunctivae normal. HEENT: Oral cavity dry mucous membranes. External appearance of nose and ears normal. NECK: Unable to assess. Mass not palpable. RESPIRATORY: Effort normal. LUNGS: Diminished breath sounds. CARDIOVASCULAR: First and second sounds normal. No edema. ABDOMEN: Soft, nontender. Liver and spleen not palpable. LYMPHATIC: No lymph nodes palpable or axillae. PSYCHIATRY: Unable to assess. NEUROLOGICAL: Facial asymmetry is present. Power in left arm and left leg is close to 0/5. Reflexes equivocal sensation, unable to determine but diminished. INVESTIGATIONS: White count 14.2, potassium 5.4. BUN 29, creatinine 0.72, glucose 529, 478. UA showing leukocyte esterase and elevated WBC. Serum acetone positive. Chest x-ray not acute. ASSESSMENT: 1. Acute dense stroke affecting the left side of the body in a right-handed patient, in the right middle cerebral artery area. The patient did have MRA of the brain that showed atrophy back in July. A 2-D echocardiogram showed normal ejection fraction. 2. Fevers with mildly positive urinary tract infection. No other source present at the present time. Continue with ceftriaxone. 3. Chronic obstructive pulmonary disease in an ex-smoker. 4. Diabetic ketoacidosis. 5. Hyperlipidemia. 6. Hypertension. 7. Primary osteoarthritis of multiple joints. 8. Chronic diverticulosis. 9. Diabetes mellitus type 2, causing peripheral neuropathy. 10. 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 11. Coronary artery disease with prior history of stent. 12. Moderate aortic stenosis, non-rheumatic. 13. CODE STATUS - DO NOT RESUSCITATE. PLAN: Patient should be put on rectal aspirin. The patient stroke is rather dense. We will put an NG tube in for the other medications. Lantus will be resumed with sliding scale every 4 hours. Aspiration precautions are maintained. Consultation with critical care. ( ) being done. Overall prognosis is guarded. Patient's son is power of employment law attorney. Prognosis guarded.
[2016-09-28 23:52] LABS: Glucose,Whole Blood 152 mg/dL (75-99)
[2016-09-28] MEDS: INSULIN LISPRO (humaLOG) 300 UNIT/3 ML VIAL SQ SCH (23:54)
[2016-09-28] MEDS: INSULIN GLARGINE 100 UNIT/ML 10 ML VIAL SQ SCH (23:54)
[2016-09-29 00:12] LABS: Hemoglobin A1C 13.1 % (4.2-6.1)
[2016-09-29 00:16] LABS: Anion Gap 12 mmol/L; Blood Urea Nitrogen 34 mg/dL (7-17); Carbon Dioxide 24 mmol/L (22-30); Chloride 110 mmol/L (98-107); Glucose 168 mg/dL (74-99); Non-African American GFR(MDRD) >60 (>60 ml/min/1.73 sqM); Potassium 4.3 mmol/L (3.5-5.1); Sodium 146 mmol/L (137-145)
[2016-09-29 00:37] LABS: Glucose,Whole Blood 187 mg/dL (75-99)
[2016-09-29] MEDS: SODIUM CHLORIDE 0.9% 1,000 ML IV SCH ×4 (02:12→21:51)
[2016-09-29] MEDS: INSULIN LISPRO (humaLOG) 300 UNIT/3 ML VIAL SQ SCH ×7 (02:14→23:58)
[2016-09-29 02:15] LABS: Glucose,Whole Blood 231 mg/dL (75-99)
[2016-09-29 04:54] LABS: Basophils % (A) 0 %; CH 26.3; CHCM 30.6; Eosinophils % (A) 0 %; HCT 38.9 % (34.0-46.0); HDW 2.68; HGB 11.9 gm/dL (11.4-16.0); Hypochromasia Moderate; Luc # (Auto) 0.18; Luc % (Auto) 1; Lymphocytes # (A) 1.7 k/uL (1.0-4.8); Lymphocytes % (A) 10 %; MCH 26.5 pg (25.0-35.0); MCHC 30.7 g/dL (31.0-37.0); MCV 86.3 fL (80.0-100.0); Mean Platelet Volume 9.2; Monocytes # (A) 0.8 k/uL (0-1.0); Monocytes % (A) 5 %; Neutrophils # (A) 13.6 k/uL (1.3-7.7); Neutrophils % (A) 84 %; RDW 14.9 % (11.5-15.5); WBC 16.3 k/uL (3.8-10.6); WBC (Perox) 17.33
[2016-09-29 05:08] LABS: Anion Gap 13 mmol/L; Blood Urea Nitrogen 32 mg/dL (7-17); Carbon Dioxide 22 mmol/L (22-30); Chloride 111 mmol/L (98-107); Glucose 247 mg/dL (74-99); Magnesium 1.6 mg/dL (1.6-2.3); Non-African American GFR(MDRD) >60 (>60 ml/min/1.73 sqM); Phosphorous 3.1 mg/dL (2.5-4.5); Sodium 146 mmol/L (137-145)
[2016-09-29] MEDS: CARVEDILOL 12.5 MG TAB PO SCH ×2 (05:45→19:06)
[2016-09-29 05:53] LABS: Glucose,Whole Blood 225 mg/dL (75-99)
[2016-09-29 08:03] LABS: Glucose,Whole Blood 204 mg/dL (75-99)
--- NOTE | 2016-09-29 08:22 | XR ---
EXAMINATION TYPE: XR chest 1V DATE OF EXAM: 09/29/2016 6:49 AM COMPARISON: 09/28/2016 HISTORY: Aspiration, NG tube placement TECHNIQUE: Single frontal view of the chest is obtained. FINDINGS: There is no focal air space opacity, pleural effusion, or pneumothorax seen. The cardiac silhouette size is within normal limits. The osseous structures are intact. Linear changes at the l fritz bases most typical of atelectasis. NG tube is seen extending in the left upper quadrant of the. IMPRESSION: 1. NG tube appears in good position. 2. Basilar atelectasis favored over pneumonia
[2016-09-29] MEDS: MAGNESIUM SULFATE-D5W PMX 1 GM in DEXTROSE/WATER 1 100ML.BAG IVPB SCH ×2 (08:39→09:50)
[2016-09-29] MEDS: PANTOPRAZOLE 40 MG/10 ML VIAL IVP SCH ×2 (08:44→21:51)
[2016-09-29] MEDS: CLOPIDOGREL 75 MG TAB PO SCH (08:44)
[2016-09-29] MEDS: ASPIRIN 300 MG SUPP RECTAL SCH (08:44)
[2016-09-29] MEDS: ATORVASTATIN 80 MG TAB PO SCH (08:44)
[2016-09-29] MEDS ORDERED: LORazepam 2 MG/ML SYRINGE IV STA ×2 (09:43→15:11)
[2016-09-29 10:24] LABS: Glucose,Whole Blood 220 mg/dL (75-99)
[2016-09-29] MEDS: LISINOPRIL 20 MG TAB PO SCH (10:32)
[2016-09-29] MEDS: ACETAMINOPHEN TAB 325 MG TAB PO PRN (11:38)
[2016-09-29 12:18] LABS: Glucose,Whole Blood 214 mg/dL (75-99)
[2016-09-29 14:00] LABS: Glucose,Whole Blood 127 mg/dL (75-99)
--- NOTE | 2016-09-29 14:46 | P.PN ---
Subjective Principal diagnosis: Acute right hemispheric CVA This is a 75-year-old female with history of multiple medical problems including hypertension, diabetes, hyperlipidemia, valvular heart disease with moderate severe aortic based on a recent echocardiogram, stenosis, history of multiple transient ischemic attacks, and the last one was in late July of 2016. Back then the patient had extensive workup included CT angiogram of the neck, echocardiogram, CT head, MRI, MRA, and these were all negative. At that time the patient presented with expressive aphasia, slurred speech, patient was eventually discharged home on Plavix. Patient normally lives with her son and his girlfriend, and today he tried to get into the house, patient was inside the house and she was unresponsive. When the police and family members entered the house, she was found unresponsive, she was noted to have left upper and left lower extremity weakness. And she was obtunded. Patient was brought into the ER, CT of the brain was negative. Blood sugar was elevated, patient had positive ketones, hence the patient was placed on the DKA protocol, received fluid boluses, and now she is on insulin drip. Her mental status is not improving much since arrival to the ER, patient is unresponsive except once in a while she may open her eyes, but they seem to be deviated to the right side. Continues to have significant weakness on the left side. And patient is not following any instructions whatsoever. Pupils are reactive. Patient has a good gag reflex, and she has a left sided miguel-plegia. Patient was reevaluated today on 09/29/2016, patient is basically about the same as she was yesterday on my physical examination dated 09/28/2016. She was seen by neurology on consultation, and she was felt to have a CVA involving the right middle cerebral artery. MRI was requested to be done today. And that is pending. Labs were reviewed CBC showed leukocytosis with WBC of 16.3 electrolytes are normal on iron gap is 12 blood sugar is 247. Chest x-ray showed basilar atelectasis. Objective - Vital Signs Vital signs: Vital Signs Temp 98.4 F 09/29/16 08:00 Pulse 81 09/29/16 14:00 Resp 14 09/29/16 14:00 BP 124/51 09/29/16 14:00 Pulse Ox 96 09/29/16 14:00 Intake & Output 02/09/29/16 09/29/16 18:59 06:59 18:59 Intake Total 993.575 2394.815 900 Output Total 300 540 325 Balance 707.985 3052.815 575 Weight 78.6 kg 79.8 kg 79.8 kg Intake: IV 525 1800 900 D5-0.45% NaCl with KCl 300 20Meq/l 1,000 ml @ 150 mls/hr IV .Q6H40M [facility] Rx# :[id number] Sodium Chloride 0.9% 1, 525 1500 900 000 ml @ 150 mls/hr IV . Q6H40M [facility] Rx#:[id number] Intake, IV Titration 16.699 37.815 Amount Insulin Regular 100 unit 16.699 37.815 In Sodium Chloride 0.9% 100 ml @ 3 UNIT/HR 3.03 mls/hr IV .Q24H [facility] Rx#: [id number] Output: Urine 300 540 325 Other: Voiding Method Indwelling Catheter Indwelling Catheter Indwelling Catheter # Voids 1 # Bowel Movements 1 - Exam Physical Exam: Revealed a 75-year-old female, obtunded, pupils equally reactive to light, both eyes are deviated to the right side good gag reflex, HEENT:[Neck is supple.] [No neck masses.] [No thyromegaly.] [No JVD.] Good gag reflex was noted. Chest: [Clear throughout, no crackles, no rhonchi, no wheezes.] Cardiac Exam: [Normal S1 and S2, no S3 gallop, no murmur.] Abdomen: [Soft, nontender, no megaly, no rebound, no guarding, normal bowel sounds.] Extremities: [No clubbing, no edema, no cyanosis.] Neurological Exam: Dense left-sided hemiplegia was noted. Pupils equally reactive to light deviation of both eyes to the right side. Unable to follow any instructions. - Labs CBC & Chem 7: 09/29/16 04:21 09/29/16 04:21 Labs: Abnormal Lab Results - Last 24 Hours (Table) 09/28/16 09/28/16 09/28/16 Range/Units 14:45 15:51 16:59 WBC (3.8-10.6) k/uL MCHC (31.0-37.0) g/dL Neutrophils # (1.3-7.7) k/uL Sodium (137-145) mmol/L Chloride (98-107) mmol/L BUN (7-17) mg/dL Glucose (74-99) mg/dL POC Glucose (mg/dL) 443 H 401 H (75-99) mg/dL Hemoglobin A1c (4.2-6.1) % Plasma Lactic Acid Antwon 2.1 H (0.7-2.0) mmol/L 09/28/16 09/28/16 09/28/16 Range/Units 17:11 18:41 20:07 WBC (3.8-10.6) k/uL MCHC (31.0-37.0) g/dL Neutrophils # (1.3-7.7) k/uL Sodium (137-145) mmol/L Chloride (98-107) mmol/L BUN (7-17) mg/dL Glucose (74-99) mg/dL POC Glucose (mg/dL) 342 H 270 H 183 H (75-99) mg/dL Hemoglobin A1c (4.2-6.1) % Plasma Lactic Acid Antwon (0.7-2.0) mmol/L 09/28/16 09/28/16 09/28/16 Range/Units 20:28 20:28 21:02 WBC (3.8-10.6) k/uL MCHC (31.0-37.0) g/dL Neutrophils # (1.3-7.7) k/uL Sodium 147 H (137-145) mmol/L Chloride 110 H (98-107) mmol/L BUN 35 H (7-17) mg/dL Glucose 165 H (74-99) mg/dL POC Glucose (mg/dL) 143 H (75-99) mg/dL Hemoglobin A1c 13.1 H (4.2-6.1) % Plasma Lactic Acid Antwon (0.7-2.0) mmol/L 09/28/16 09/28/16 09/28/16 Range/Units 22:02 22:58 23:51 WBC (3.8-10.6) k/uL MCHC (31.0-37.0) g/dL Neutrophils # (1.3-7.7) k/uL Sodium 146 H (137-145) mmol/L Chloride 110 H (98-107) mmol/L BUN 34 H (7-17) mg/dL Glucose 168 H (74-99) mg/dL POC Glucose (mg/dL) 149 H 138 H (75-99) mg/dL Hemoglobin A1c (4.2-6.1) % Plasma Lactic Acid Antwon (0.7-2.0) mmol/L 09/28/16 09/29/16 09/29/16 Range/Units 23:51 00:35 02:13 WBC (3.8-10.6) k/uL MCHC (31.0-37.0) g/dL Neutrophils # (1.3-7.7) k/uL Sodium (137-145) mmol/L Chloride (98-107) mmol/L BUN (7-17) mg/dL Glucose (74-99) mg/dL POC Glucose (mg/dL) 152 H 187 H 231 H (75-99) mg/dL Hemoglobin A1c (4.2-6.1) % Plasma Lactic Acid Antwon (0.7-2.0) mmol/L 09/29/16 09/29/16 09/29/16 Range/Units 04:21 04:21 05:51 WBC 16.3 H (3.8-10.6) k/uL MCHC 30.7 L (31.0-37.0) g/dL Neutrophils # 13.6 H (1.3-7.7) k/uL Sodium 146 H (137-145) mmol/L Chloride 111 H (98-107) mmol/L BUN 32 H (7-17) mg/dL Glucose 247 H (74-99) mg/dL POC Glucose (mg/dL) 225 H (75-99) mg/dL Hemoglobin A1c (4.2-6.1) % Plasma Lactic Acid Antwon (0.7-2.0) mmol/L 09/29/16 09/29/16 09/29/16 Range/Units 08:01 10:22 12:16 WBC (3.8-10.6) k/uL MCHC (31.0-37.0) g/dL Neutrophils # (1.3-7.7) k/uL Sodium (137-145) mmol/L Chloride (98-107) mmol/L BUN (7-17) mg/dL Glucose (74-99) mg/dL POC Glucose (mg/dL) 204 H 220 H 214 H (75-99) mg/dL Hemoglobin A1c (4.2-6.1) % Plasma Lactic Acid Antwon (0.7-2.0) mmol/L 09/29/16 Range/Units 13:58 WBC (3.8-10.6) k/uL MCHC (31.0-37.0) g/dL Neutrophils # (1.3-7.7) k/uL Sodium (137-145) mmol/L Chloride (98-107) mmol/L BUN (7-17) mg/dL Glucose (74-99) mg/dL POC Glucose (mg/dL) 127 H (75-99) mg/dL Hemoglobin A1c (4.2-6.1) % Plasma Lactic Acid Antwon (0.7-2.0) mmol/L Assessment and Plan Plan: Impression: 1 acute right hemispheric CVA with left-sided weakness. 2 acute diabetic ketoacidosis 3 acute urinary tract infection is suspected 4 history of multiple comorbidities including previous TIAs, severe aortic stenosis, hypertension, hyperlipidemia, diabetes, Recommendation: Continue present treatment plan, neurology consultation was noted, follow the DKA protocol, empiric antibiotics for presumptive urinary tract infection, close monitoring in the ICU. GI and DVT prophylaxis. Neuro checks every one hour, Discussed CODE STATUS with the family at bedside, patient is DO NOT RESUSCITATE at present. This is based on her previously expressed wishes and the wishes of her son. Prognosis is guarded, will continue to follow. Time with Patient: Less than 30
[2016-09-29 14:47] LABS: Basophils # (A) 0.1 k/uL (0-0.2); Basophils % (A) 0 %; CHCM 31.2; Eosinophils # (A) 0.1 k/uL (0-0.7); Eosinophils % (A) 1 %; HCT 38.7 % (34.0-46.0); HDW 2.65; HGB 12.3 gm/dL (11.4-16.0); Hypochromasia Slight; Luc # (Auto) 0.22; Luc % (Auto) 1; Lymphocytes % (A) 12 %; MCH 27.5 pg (25.0-35.0); MCHC 31.8 g/dL (31.0-37.0); MCV 86.7 fL (80.0-100.0); Mean Platelet Volume 9.7; Monocytes # (A) 0.9 k/uL (0-1.0); Monocytes % (A) 5 %; Neutrophils # (A) 13.6 k/uL (1.3-7.7); Neutrophils % (A) 80 %; RBC 4.47 m/uL (3.80-5.40); RDW 15.5 % (11.5-15.5); WBC 16.9 k/uL (3.8-10.6)
[2016-09-29 14:55] LABS: Anion Gap 10 mmol/L; Blood Urea Nitrogen 29 mg/dL (7-17); Carbon Dioxide 26 mmol/L (22-30); Chloride 111 mmol/L (98-107); Glucose 116 mg/dL (74-99); Magnesium 2.3 mg/dL (1.6-2.3); Non-African American GFR(MDRD) >60 (>60 ml/min/1.73 sqM); Phosphorous 2.7 mg/dL (2.5-4.5); Potassium 3.8 mmol/L (3.5-5.1); Sodium 147 mmol/L (137-145)
[2016-09-29] MEDS ORDERED: Potassium Replacement Protocol 1 EACH MISC MISCELLANE PRN (15:50)
[2016-09-29 15:51] LABS: Glucose,Whole Blood 99 mg/dL (75-99)
[2016-09-29] MEDS ORDERED: POTASSIUM CHLORIDE ORAL LIQUID 40 MEQ/30 ML CUP NG-TUBE SCH (16:00)
[2016-09-29 17:29] LABS: Glucose,Whole Blood 102 mg/dL (75-99)
--- NOTE | 2016-09-29 18:56 | P.PN ---
Subjective This patient is a 75 year old female seen today in the ICU for further evaluation of stroke and confusion. Patient was seen in initial consultation yesterday in the intensive care unit. She was very obtunded and had gaze deviation to the right. She also appeared to have left-sided hemiparesthesias. She was sent for MRI of the brain today the results of which are pending. She is being evaluated for possibility of acute stroke. Patient is being treated for underlying diabetic ketoacidosis. She was very combative earlier today as well. We are waiting the results of her MRI of the brain which was done today. She did undergo routine EEG for further assessment as well. The EEG was reviewed and does reveal moderate degree of cerebral slowing. No evidence of any epileptiform discharges. According to the ICU nursing staff the patient was more alert earlier today. She was moving all 4 extremities on light yesterday evening. She did require some Ativan prior to her MRI testing today due to agitation. The patient's son was at bedside and was updated on her neurological status. We are waiting the results of her MRI of the brain. Preliminary review of the MRI films fails to reveal any significant acute stroke on MRI brain imaging. The fact that she is moving her left side today also is encouraging. The patient has been taken off of her insulin drip today. She does seem to be more arousable according to the ICU nursing staff earlier today. Her clinical history suggesting a diffuse encephalopathy due to possible metabolic derangements. According to the son she has been saying a few words to him earlier today. We will continue close neurological follow-up with this patient. We will await the final report on the MRI of the brain and we'll give further recommendations at that time. Her overall prognosis remains guarded. Objective - Vital Signs Vital signs: Vital Signs Temp 98.4 F 09/29/16 08:00 Pulse 85 09/29/16 17:00 Resp 16 09/29/16 17:00 BP 137/54 09/29/16 17:00 Pulse Ox 96 09/29/16 17:00 Intake & Output 09/28/16 09/29/16 09/29/16 18:59 06:59 18:59 Intake Total 853.362 8603.815 1225 Output Total 300 540 465 Balance 038.682 8625.815 760 Weight 78.6 kg 79.8 kg 79.8 kg Intake: IV 525 1800 1225 D5-0.45% NaCl with KCl 300 20Meq/l 1,000 ml @ 150 mls/hr IV .Q6H40M [facility] Rx# :[id number] Sodium Chloride 0.9% 1, 525 1500 1125 000 ml @ 150 mls/hr IV . Q6H40M [facility] Rx#:[id number] cefTRIAXone 1,000 mg In 100 Sodium Chloride 0.9% 50 ml @ 100 mls/hr IVPB Q24H [facility] Rx#:[id number] Intake, IV Titration 16.699 37.815 Amount Insulin Regular 100 unit 16.699 37.815 In Sodium Chloride 0.9% 100 ml @ 3 UNIT/HR 3.03 mls/hr IV .Q24H ONE Rx#: [id number] Output: Urine 300 540 465 Other: Voiding Method Indwelling Catheter Indwelling Catheter Indwelling Catheter # Voids 1 # Bowel Movements 1 - Exam Physical examination: PHYSICAL EXAMINATION: Patient is resting comfortably in bed. VITAL SIGNS: Blood pressure is [137/54]. Heart rate is [85]. Respiration is [16] . Temperature is [98.4]. HEENT: Head is atraumatic, neck is supple, there were no carotid bruits. CHEST: Lungs are clear to auscultation and percussion. CARDIAC: S1, S2 normal rate and rhythm. There is no murmur. ABDOMEN: Soft and nontender. Bowel sounds are present. EXTREMITIES: There is no pedal edema. Peripheral pulses are present. Neurological examination: Patient is resting in the intensive care unit. She is somewhat obtunded but arousable. She opens her eyes. She is noted to be moving all 4 extremities. - Labs CBC & Chem 7: 09/29/16 14:23 09/29/16 14:23 Labs: Abnormal Lab Results - Last 24 Hours (Table) 09/28/16 09/28/16 09/28/16 Range/Units 16:59 18:41 20:07 WBC (3.8-10.6) k/uL MCHC (31.0-37.0) g/dL Neutrophils # (1.3-7.7) k/uL Sodium (137-145) mmol/L Chloride (98-107) mmol/L BUN (7-17) mg/dL Glucose (74-99) mg/dL POC Glucose (mg/dL) 270 H 183 H (75-99) mg/dL Hemoglobin A1c (4.2-6.1) % Plasma Lactic Acid Antwon 2.1 H (0.7-2.0) mmol/L 09/28/16 09/28/16 09/28/16 Range/Units 20:28 20:28 21:02 WBC (3.8-10.6) k/uL MCHC (31.0-37.0) g/dL Neutrophils # (1.3-7.7) k/uL Sodium 147 H (137-145) mmol/L Chloride 110 H (98-107) mmol/L BUN 35 H (7-17) mg/dL Glucose 165 H (74-99) mg/dL POC Glucose (mg/dL) 143 H (75-99) mg/dL Hemoglobin A1c 13.1 H (4.2-6.1) % Plasma Lactic Acid Antwon (0.7-2.0) mmol/L 09/28/16 09/28/16 09/28/16 Range/Units 22:02 22:58 23:51 WBC (3.8-10.6) k/uL MCHC (31.0-37.0) g/dL Neutrophils # (1.3-7.7) k/uL Sodium 146 H (137-145) mmol/L Chloride 110 H (98-107) mmol/L BUN 34 H (7-17) mg/dL Glucose 168 H (74-99) mg/dL POC Glucose (mg/dL) 149 H 138 H (75-99) mg/dL Hemoglobin A1c (4.2-6.1) % Plasma Lactic Acid Antwon (0.7-2.0) mmol/L 09/28/16 09/29/16 09/29/16 Range/Units 23:51 00:35 02:13 WBC (3.8-10.6) k/uL MCHC (31.0-37.0) g/dL Neutrophils # (1.3-7.7) k/uL Sodium (137-145) mmol/L Chloride (98-107) mmol/L BUN (7-17) mg/dL Glucose (74-99) mg/dL POC Glucose (mg/dL) 152 H 187 H 231 H (75-99) mg/dL Hemoglobin A1c (4.2-6.1) % Plasma Lactic Acid Antwon (0.7-2.0) mmol/L 09/29/16 09/29/16 09/29/16 Range/Units 04:21 04:21 05:51 WBC 16.3 H (3.8-10.6) k/uL MCHC 30.7 L (31.0-37.0) g/dL Neutrophils # 13.6 H (1.3-7.7) k/uL Sodium 146 H (137-145) mmol/L Chloride 111 H (98-107) mmol/L BUN 32 H (7-17) mg/dL Glucose 247 H (74-99) mg/dL POC Glucose (mg/dL) 225 H (75-99) mg/dL Hemoglobin A1c (4.2-6.1) % Plasma Lactic Acid Antwon (0.7-2.0) mmol/L 09/29/16 09/29/16 09/29/16 Range/Units 08:01 10:22 12:16 WBC (3.8-10.6) k/uL MCHC (31.0-37.0) g/dL Neutrophils # (1.3-7.7) k/uL Sodium (137-145) mmol/L Chloride (98-107) mmol/L BUN (7-17) mg/dL Glucose (74-99) mg/dL POC Glucose (mg/dL) 204 H 220 H 214 H (75-99) mg/dL Hemoglobin A1c (4.2-6.1) % Plasma Lactic Acid Antwon (0.7-2.0) mmol/L 09/29/16 09/29/16 09/29/16 Range/Units 13:58 14:23 14:23 WBC 16.9 H (3.8-10.6) k/uL MCHC (31.0-37.0) g/dL Neutrophils # 13.6 H (1.3-7.7) k/uL Sodium 147 H (137-145) mmol/L Chloride 111 H (98-107) mmol/L BUN 29 H (7-17) mg/dL Glucose 116 H (74-99) mg/dL POC Glucose (mg/dL) 127 H (75-99) mg/dL Hemoglobin A1c (4.2-6.1) % Plasma Lactic Acid Antwon (0.7-2.0) mmol/L 09/29/16 Range/Units 17:27 WBC (3.8-10.6) k/uL MCHC (31.0-37.0) g/dL Neutrophils # (1.3-7.7) k/uL Sodium (137-145) mmol/L Chloride (98-107) mmol/L BUN (7-17) mg/dL Glucose (74-99) mg/dL POC Glucose (mg/dL) 102 H (75-99) mg/dL Hemoglobin A1c (4.2-6.1) % Plasma Lactic Acid Antwon (0.7-2.0) mmol/L Assessment and Plan (1) Acute right arterial ischemic stroke, MCA (middle cerebral artery) Status: Acute Code(s): I63.511 - CEREB INFRC D/T UNSP OCCLS OR STENOS OF RIGHT MID CEREB ART (2) Diabetic ketoacidosis Status: Acute Code(s): E13.10 - OTH DIABETES MELLITUS WITH KETOACIDOSIS WITHOUT COMA (3) Transient cerebral ischemia Status: Acute Code(s): G45.9 - TRANSIENT CEREBRAL ISCHEMIC ATTACK, UNSPECIFIED (4) Hyperlipemia Status: Chronic Code(s): E78.5 - HYPERLIPIDEMIA, UNSPECIFIED Plan: This patient is a 75-year-old right-handed white female who is being followed for recent episode of confusion and possible stroke. Yesterday she was hemiplegic on her left side suggesting possibility of acute right hemispheric stroke. She was sent for MRI of the brain for further evaluation. This MRI was completed today and the final report is pending at this time. According to the ICU nursing staff she is been moving all 4 extremities today unlike yesterday. She does open her eyes and has been able to say a few words to her family members. She underwent routine EEG which is reviewed and reveals diffuse slowing. This patient's history at this time suggest a diffuse encephalopathy secondary to metabolic abnormalities. Would continue close neurological follow-up for this patient in the ICU setting. We will continue to monitor for any further changes in her mental status. Continue aggressive treatment of her diabetic ketoacidosis. Blood sugars have come down nicely. She is off of her insulin drip today. Case was discussed at length with the patient's son and family members. All their questions were answered. They are aware of her recent neurological findings. We will continue to follow her closely in the intensive care unit setting. Her overall prognosis at this time remains guarded.
[2016-09-29 20:59] LABS: Glucose,Whole Blood 133 mg/dL (75-99)
[2016-09-29] MEDS: ENOXAPARIN 40 MG/0.4 ML SYRINGE SQ SCH (21:50)
--- NOTE | 2016-09-29 22:35 | MR ---
EXAMINATION TYPE: MR brain wo con DATE OF EXAM: 09/29/2016 5:01 PM COMPARISON: MRI 07/29/2016, CT 09/28/2016 HISTORY: confusion, acute rt hemispheric stroke TECHNIQUE: Standard multiplanar, multisequence MRI departmental protocol. Multiplanar, multisequence images of the brain were acquired. Diffusion weighted imaging was performed. FINDINGS: There is no intracranial hemorrhage. There are two adjacent sub-cm T2 hyperintense foci located high over the convexity of the right poste rior frontal lobe, in the cortical ingram of the precentral gyrus. These foci show DWI and ADC signal c onsistent with restricted diffusion, consistent with acute/subacute sub-cm cortical nonhemorrhagic in farction in the motor strip and likely correlating with the clinical findings of right hemispheric st roke. There is no other candidate for restricted diffusion to suggest acute or subacute infarction elsewher e. There are a few scattered tiny nonspecific T2 hyperintensities within the palomares radiata and centrum semiovale, which are nonspecific but likely representing small vessel change. There is no focal encephalomalacia to suggest prior macrovascular infarction. There is no mass or mass effect or abnormal fluid collection. Skeletal structures and visualized extr acranial structures unremarkable. IMPRESSION: Two adjacent tiny sub-cm right frontal lobe restricted diffusion foci as discussed; correlate with ri ght motor strip symptoms.
[2016-09-29] MEDS: INSULIN GLARGINE 100 UNIT/ML 10 ML VIAL SQ SCH (23:48)
[2016-09-29 23:49] LABS: Glucose,Whole Blood 129 mg/dL (75-99)
[2016-09-29] MEDS: DEXTROSE 5% IN WATER 1,000 ML IV SCH (23:58)
[2016-09-30 02:50] LABS: Glucose,Whole Blood 229 mg/dL (75-99)
[2016-09-30] MEDS: INSULIN LISPRO (humaLOG) 300 UNIT/3 ML VIAL SQ SCH ×5 (05:51→22:39)
[2016-09-30 06:12] LABS: Glucose,Whole Blood 259 mg/dL (75-99)
--- NOTE | 2016-09-30 07:46 | PN ---
DATE OF SERVICE: 09/29/2016 PRESENTING COMPLAINT: Acute stroke. INTERVAL HISTORY: This patient was found unconscious with a dense weakness on the left side. There was some movement today. The patient did speak a few words here and there. NG tube is in place. Telemetry showing sinus rhythm. The patient did have a fever of initially for which she has been on ceftriaxone. REVIEW OF SYSTEMS: Patient does not talk much, occasional words. Current medications are reviewed and include ceftriaxone, aspirin, Coreg, Lantus. On examination, temperature 98.3, pulse 76, respirations 22, blood pressure 129/56, pulse ox 98% on 3 L. GENERAL APPEARANCE: Lying in bed, eyes closed. Pupils equal. NECK: JVD unable to assess. Mass not palpable. RESPIRATORY: Effort normal. LUNGS: Diminished breath sounds. CARDIOVASCULAR: First and second sounds normal. No edema. ABDOMEN: Soft, nontender. NEUROLOGICAL: Weakness on the left side persists. INVESTIGATIONS: White count 16.9. Potassium 3.8. BUN 29, creatinine 0.77. Accu-Cheks are noted. Urine culture is growing presumptive staph aureus. ASSESSMENT: 1. Acute dense stroke affecting the left side of the body in a right handed patient, probably in the territory of right middle cerebral artery area or in the brainstem. 2. Urinary tract infection with cultures pending. 3. Chronic obstructive pulmonary disease in an ex-smoker. 4. Diabetic ketoacidosis, on presentation. 5. Hyperlipidemia. 6. Essential hypertension. 7. Primary osteoarthritis of multiple joints. 8. Chronic diverticulosis. 9. Diabetes mellitus type 2, causing peripheral neuropathy. 10. 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 11. Coronary artery disease with prior history of stent. 12. Moderate aortic stenosis, nonrheumatic. 13. CODE STATUS: DO NOT RESUSCITATE. PLAN: Will start the patient on feeding through the NG tube. Overall prognosis still remains guarded. Follow with Neurology. MRI was done, results of which are pending. Patient definitely slow to respond. Will follow.
[2016-09-30 08:17] LABS: Glucose,Whole Blood 230 mg/dL (75-99)
--- NOTE | 2016-09-30 08:21 | EEG ---
DATE OF SERVICE: 09/29/2016 INDICATIONS FOR EXAMINATION: This patient is a 75 -year-old female being evaluated for altered mental status and possible stroke. AGE: 75Y EEG FINDINGS: A routine 21 channel awake digital EEG recording was accomplished utilizing the 10-20 international system with bipolar and referential montages. The background activity in the most alert resting state consists of a low to medium amplitude, poorly developed and poorly sustained 4-5 Hz activity over the posterior head regions. This posterior rhythm attenuates minimally to eye opening. There is a small amount of low amplitude 18-20 Hz beta activity seen maximally over the anterior head regions. Muscle and movement artifact was observed on a several occasions during the tracing. Hyperventilation was not performed. Photic stimulation at flash frequencies of 2-30 Hz produced a minimal occipital driving response. No epileptiform discharges were seen. IMPRESSION: This EEG gives evidence of a severe widespread diffuse disturbance in cerebral function. The EEG failed to reveal any focal, lateralized or epileptiform abnormalities. If clinically indicated, follow-up EEG is recommended. Clinical correlation is recommended.
[2016-09-30 08:30] LABS: Basophils # (A) 0.1 k/uL (0-0.2); Basophils % (A) 0 %; CH 26.5; CHCM 30.6; Eosinophils # (A) 0.1 k/uL (0-0.7); Eosinophils % (A) 1 %; HCT 39.1 % (34.0-46.0); HDW 2.73; HGB 12.2 gm/dL (11.4-16.0); Hypochromasia Moderate; Luc # (Auto) 0.18; Luc % (Auto) 1; Lymphocytes # (A) 2.1 k/uL (1.0-4.8); Lymphocytes % (A) 14 %; MCH 27.1 pg (25.0-35.0); MCHC 31.2 g/dL (31.0-37.0); MCV 86.9 fL (80.0-100.0); Mean Platelet Volume 9.7; Monocytes # (A) 0.5 k/uL (0-1.0); Monocytes % (A) 4 %; Neutrophils # (A) 11.7 k/uL (1.3-7.7); Neutrophils % (A) 80 %; RBC 4.51 m/uL (3.80-5.40); RDW 15.3 % (11.5-15.5); WBC 14.6 k/uL (3.8-10.6); WBC (Perox) 15.69
[2016-09-30 08:45] LABS: Anion Gap 7 mmol/L; Blood Urea Nitrogen 24 mg/dL (7-17); Calcium 8.7 mg/dL (8.4-10.2); Carbon Dioxide 28 mmol/L (22-30); Chloride 111 mmol/L (98-107); Glucose 233 mg/dL (74-99); Magnesium 1.8 mg/dL (1.6-2.3); Non-African American GFR(MDRD) >60 (>60 ml/min/1.73 sqM); Phosphorous 2.3 mg/dL (2.5-4.5); Potassium 4.7 mmol/L (3.5-5.1); Sodium 146 mmol/L (137-145)
[2016-09-30] MEDS: LISINOPRIL 20 MG TAB PO SCH (09:36)
[2016-09-30] MEDS: CARVEDILOL 12.5 MG TAB PO SCH ×2 (09:36→18:01)
[2016-09-30] MEDS: CLOPIDOGREL 75 MG TAB PO SCH (09:36)
[2016-09-30] MEDS: PANTOPRAZOLE 40 MG/10 ML VIAL IVP SCH ×2 (09:36→22:43)
[2016-09-30] MEDS: ASPIRIN 300 MG SUPP RECTAL SCH (09:37)
[2016-09-30] MEDS: ATORVASTATIN 80 MG TAB PO SCH (09:37)
[2016-09-30] MEDS: DEXTROSE 5% IN WATER 1,000 ML IV SCH (09:38)
[2016-09-30 11:41] LABS: Glucose,Whole Blood 231 mg/dL (75-99)
--- NOTE | 2016-09-30 14:25 | P.PN ---
Subjective This is a 75-year-old female with history of multiple medical problems including hypertension, diabetes, hyperlipidemia, valvular heart disease with moderate severe aortic based on a recent echocardiogram, stenosis, history of multiple transient ischemic attacks, and the last one was in late July of 2016. Back then the patient had extensive workup included CT angiogram of the neck, echocardiogram, CT head, MRI, MRA, and these were all negative. At that time the patient presented with expressive aphasia, slurred speech, patient was eventually discharged home on Plavix. Patient normally lives with her son and his girlfriend, and today he tried to get into the house, patient was inside the house and she was unresponsive. When the police and family members entered the house, she was found unresponsive, she was noted to have left upper and left lower extremity weakness. And she was obtunded. Patient was brought into the ER, CT of the brain was negative. Blood sugar was elevated, patient had positive ketones, hence the patient was placed on the DKA protocol, received fluid boluses, and now she is on insulin drip. Her mental status is not improving much since arrival to the ER, patient is unresponsive except once in a while she may open her eyes, but they seem to be deviated to the right side. Continues to have significant weakness on the left side. And patient is not following any instructions whatsoever. Pupils are reactive. Patient has a good gag reflex, and she has a left sided miguel-plegia. Patient was reevaluated today on 09/29/2016, patient is basically about the same as she was yesterday on my physical examination dated 09/28/2016. She was seen by neurology on consultation, and she was felt to have a CVA involving the right middle cerebral artery. MRI was requested to be done today. And that is pending. Labs were reviewed CBC showed leukocytosis with WBC of 16.3 electrolytes are normal on iron gap is 12 blood sugar is 247. Chest x-ray showed basilar atelectasis. The patient is seen again today 09/30/2016 out and on the regular medical floor. She is currently sitting up in the chair at the bedside. Her sons are present. She is a little more awake and alert today as compared to yesterday. She's been up with assistance to the bathroom and back. She continues with significant left-sided weakness and slight left-sided facial droop. The MRI of her brain revealed 2 adjacent tiny subcentimeter right frontal lobe restricted diffusion foci most likely related to her left-sided symptoms. Neurology is on the case as well. Objective - Vital Signs Vital signs: Vital Signs Temp 98.2 F 09/30/16 13:40 Pulse 70 09/30/16 13:40 Resp 18 09/30/16 13:40 BP 99/52 09/30/16 13:40 Pulse Ox 99 09/30/16 13:40 Intake & Output 09/29/16 09/30/16 09/30/16 18:59 06:59 18:59 Intake Total 1300 1155 Output Total 495 395 3 Balance 805 760 -3 Weight 79.8 kg 81 kg Intake: IV 1300 375 Sodium Chloride 0.9% 1, 1200 375 000 ml @ 75 mls/hr IV . [id number] [facility] Rx#:[id number] cefTRIAXone 1,000 mg In 100 Sodium Chloride 0.9% 50 ml @ 100 mls/hr IVPB Q24H [facility] Rx#:[id number] Intake, IV Titration 500 Amount Dextrose 5% in Water 1, 500 000 ml @ 100 mls/hr IV . Q10H [facility] Rx#:[id number] Tube Feeding 240 Other 40 Output: Urine 495 395 Stool 3 Other: Voiding Method Indwelling Catheter Indwelling Catheter # Voids 1 1 # Bowel Movements 1 - Exam GENERAL EXAM: Arousable, comfortable in no apparent distress. HEAD: Normocephalic. EYES: Normal sluggish reaction of pupils, equal size. NOSE: Clear with pink turbinates. THROAT: No erythema or exudates. NECK: No masses, no JVD. CHEST: No chest wall deformity. LUNGS: Equal air entry with no crackles, wheeze, rhonchi or dullness. CVS: S1 and S2 normal with no audible murmurs, regular rhythm. ABDOMEN: No hepatosplenomegaly, normal bowel sounds, no guarding or rigidity. Extremities: She continues with left-sided weakness. No significant peripheral edema. No clubbing, no cyanosis. - Labs CBC & Chem 7: 09/30/16 08:16 09/30/16 08:16 Labs: Abnormal Lab Results - Last 24 Hours (Table) 09/29/16 09/29/16 09/29/16 Range/Units 14:23 14:23 17:27 WBC 16.9 H (3.8-10.6) k/uL Neutrophils # 13.6 H (1.3-7.7) k/uL Sodium 147 H (137-145) mmol/L Chloride 111 H (98-107) mmol/L BUN 29 H (7-17) mg/dL Glucose 116 H (74-99) mg/dL POC Glucose (mg/dL) 102 H (75-99) mg/dL Phosphorus (2.5-4.5) mg/dL 09/29/16 09/29/16 09/30/16 Range/Units 20:57 23:47 02:48 WBC (3.8-10.6) k/uL Neutrophils # (1.3-7.7) k/uL Sodium (137-145) mmol/L Chloride (98-107) mmol/L BUN (7-17) mg/dL Glucose (74-99) mg/dL POC Glucose (mg/dL) 133 H 129 H 229 H (75-99) mg/dL Phosphorus (2.5-4.5) mg/dL 09/30/16 09/30/16 09/30/16 Range/Units 05:50 07:57 08:16 WBC 14.6 H (3.8-10.6) k/uL Neutrophils # 11.7 H (1.3-7.7) k/uL Sodium (137-145) mmol/L Chloride (98-107) mmol/L BUN (7-17) mg/dL Glucose (74-99) mg/dL POC Glucose (mg/dL) 259 H 230 H (75-99) mg/dL Phosphorus (2.5-4.5) mg/dL 09/30/16 09/30/16 Range/Units 08:16 11:39 WBC (3.8-10.6) k/uL Neutrophils # (1.3-7.7) k/uL Sodium 146 H (137-145) mmol/L Chloride 111 H (98-107) mmol/L BUN 24 H (7-17) mg/dL Glucose 233 H (74-99) mg/dL POC Glucose (mg/dL) 231 H (75-99) mg/dL Phosphorus 2.3 L (2.5-4.5) mg/dL Assessment and Plan Plan: Impression: #1 Acute right hemispheric CVA with left-sided weakness. #2 Acute diabetic ketoacidosis. #3 Acute urinary tract infection secondary to presumptive Staphylococcus aureus.. #4 Previous histories of TIAs. #5 Severe aortic stenosis. #6 Hypertension. #7 Hyperlipidemia. Plan: The patient was seen and evaluated by Dr. Lockwood. The patient is slightly improved today as compared to yesterday. We'll continue with PT/OT. She's been initiated on Plavix. She remains on Lovenox for DVT prophylaxis and Protonix for GI prophylaxis. We'll continue with ceftriaxone until her urine culture ID and sensitivity is resulted out. Discharge planning is in place that she will most likely need ECF for inpatient rehabilitation. She remains stable from the pulmonary and critical care standpoint. We'll follow her as needed.
[2016-09-30] MEDS: SODIUM CHLORIDE 0.9% 1,000 ML IV SCH (14:37)
[2016-09-30] MEDS: ACETAMINOPHEN TAB 325 MG TAB PO PRN (15:25)
[2016-09-30 17:10] LABS: Glucose,Whole Blood 269 mg/dL (75-99)
--- NOTE | 2016-09-30 19:54 | P.PN ---
Subjective This patient is a 75 year old female seen yesterday on initial neurology consultation in the intensive care unit. Patient was being evaluated for possible stroke and altered mental status. Patient underwent MRI of the brain for further evaluation of stroke. Her initial presentation in the ICU was one of left-sided hemiparesis and gaze deviation to the right. Yesterday evening she did show some improvement and was transferred out of the intensive care unit. She did undergo MRI of the brain the report of which this morning indicates 2 small areas of acute ischemic infarction involving the right hemisphere. These findings likely explain her initial evaluation of left-sided hemiparesthesias. She still continues to have mild handgrip weakness in the left hand as well. The patient underwent routine EEG which was moderately severe slowing. There was no epileptiform discharges seen at the time. Her findings were consistent with an encephalopathy. Patient seems to be doing somewhat better today as compared to yesterday in terms of her mental status. She is much more awake and alert today. Her speech is also much improved. We did review the results of the MRI today with the patient and her son who is at bedside. The area of infarction is very small but does explain her right hand manager program weakness today on examination. Patient should continue with her current medications. She is being treated for underlying urinary tract infection as well. She is currently on antibiotic coverage. We will continue close neurological follow-up for the patient during this admission. Objective - Vital Signs Vital signs: Vital Signs Temp 98.2 F 09/30/16 13:40 Pulse 81 09/30/16 15:50 Resp 18 09/30/16 15:50 BP 99/52 09/30/16 13:40 Pulse Ox 99 09/30/16 13:40 Intake & Output 09/29/16 09/30/16 09/30/16 18:59 06:59 18:59 Intake Total 1300 1155 Output Total 495 395 706 Balance 805 760 -706 Weight 79.8 kg 81 kg 81 kg Intake: IV 1300 375 Sodium Chloride 0.9% 1, 1200 375 000 ml @ 75 mls/hr IV . [id number] [facility] Rx#:[id number] cefTRIAXone 1,000 mg In 100 Sodium Chloride 0.9% 50 ml @ 100 mls/hr IVPB Q24H [facility] Rx#:[id number] Intake, IV Titration 500 Amount Dextrose 5% in Water 1, 500 000 ml @ 100 mls/hr IV . Q10H [facility] Rx#:[id number] Tube Feeding 240 Other 40 Output: Urine 495 395 700 Stool 6 Other: Voiding Method Indwelling Catheter Indwelling Catheter Bedside Commode Bedpan # Voids 1 2 # Bowel Movements 1 3 - Exam Physical examination: PHYSICAL EXAMINATION: Patient is resting comfortably in bed. VITAL SIGNS: Blood pressure is [99/52]. Heart rate is [70]. Respiration is [18] . Temperature is [98.2]. HEENT: Head is atraumatic, neck is supple, there were no carotid bruits. CHEST: Lungs are clear to auscultation and percussion. CARDIAC: S1, S2 normal rate and rhythm. There is no murmur. ABDOMEN: Soft and nontender. Bowel sounds are present. EXTREMITIES: There is no pedal edema. Peripheral pulses are present. Neurological examination: Patient's neurological examination is unchanged from yesterday. Patient is more awake and alert today. Her speech is much improved. Neurological exam reveals only left hand manager program weakness 3/5. - Labs CBC & Chem 7: 09/30/16 08:16 09/30/16 08:16 Labs: Abnormal Lab Results - Last 24 Hours (Table) 09/29/16 09/29/16 09/29/16 Range/Units 17:27 20:57 23:47 WBC (3.8-10.6) k/uL Neutrophils # (1.3-7.7) k/uL Sodium (137-145) mmol/L Chloride (98-107) mmol/L BUN (7-17) mg/dL Glucose (74-99) mg/dL POC Glucose (mg/dL) 102 H 133 H 129 H (75-99) mg/dL Phosphorus (2.5-4.5) mg/dL 09/30/16 09/30/16 09/30/16 Range/Units 02:48 05:50 07:57 WBC (3.8-10.6) k/uL Neutrophils # (1.3-7.7) k/uL Sodium (137-145) mmol/L Chloride (98-107) mmol/L BUN (7-17) mg/dL Glucose (74-99) mg/dL POC Glucose (mg/dL) 229 H 259 H 230 H (75-99) mg/dL Phosphorus (2.5-4.5) mg/dL 09/30/16 09/30/16 09/30/16 Range/Units 08:16 08:16 11:39 WBC 14.6 H (3.8-10.6) k/uL Neutrophils # 11.7 H (1.3-7.7) k/uL Sodium 146 H (137-145) mmol/L Chloride 111 H (98-107) mmol/L BUN 24 H (7-17) mg/dL Glucose 233 H (74-99) mg/dL POC Glucose (mg/dL) 231 H (75-99) mg/dL Phosphorus 2.3 L (2.5-4.5) mg/dL Assessment and Plan (1) Acute right arterial ischemic stroke, MCA (middle cerebral artery) Status: Acute Code(s): I63.511 - CEREB INFRC D/T UNSP OCCLS OR STENOS OF RIGHT MID CEREB ART (2) Diabetic ketoacidosis Status: Acute Code(s): E13.10 - OTH DIABETES MELLITUS WITH KETOACIDOSIS WITHOUT COMA (3) Transient cerebral ischemia Status: Acute Code(s): G45.9 - TRANSIENT CEREBRAL ISCHEMIC ATTACK, UNSPECIFIED (4) Hyperlipemia Status: Chronic Code(s): E78.5 - HYPERLIPIDEMIA, UNSPECIFIED Plan: This patient is a 75-year-old female who was transferred out of the intensive care unit yesterday. We did review her recent MRI of the brain which reveals evidence of 2 small punctate areas of acute stroke involving the right hemisphere. She is noted to be much more awake and alert today. Her speech is much improved. She has residual left hand manager program weakness. Patient should continue with her current medications for treatment of stroke. She would benefit from ongoing PT OT evaluation as well as possible outpatient therapy. She is to continue on Plavix for secondary stroke prevention. Her overall prognosis at this time remains guarded. We will continue close neurological follow-up with the patient during this admission.
[2016-09-30 20:08] LABS: Glucose,Whole Blood 237 mg/dL (75-99)
--- NOTE | 2016-09-30 20:46 | CT ---
EXAMINATION TYPE: CT brain wo con DATE OF EXAM: 09/30/2016 8:36 PM COMPARISON: 09/28/2016 HISTORY: Left arm weakness and slurred speech. CT DLP: 3350.[address] of the brain was performed. The ventricles, basal cisterns and sulci overlying the cerebral convexities demonstrate moderate enla rgement. There is no evidence for intracranial hemorrhage or sulcal effacement. There is decreased attenuation about the periventricular white matter and deep white matter of both c erebral hemispheres, compatible with chronic small vessel ischemia. Differential diagnosis does inclu de demyelination. No mass effects are seen.No midline shift. Osseous calvarium is intact. Dense opacification left maxillary sinus. If symptoms persist consider MRI. IMPRESSION: 1. Age related atrophic and chronic small vessel ischemic change without acute intracranial process s een at this time.
[2016-09-30 21:04] LABS: Basophils % (A) 0 %; CH 26.6; CHCM 30.4; Eosinophils # (A) 0.3 k/uL (0-0.7); Eosinophils % (A) 2 %; HCT 36.1 % (34.0-46.0); HDW 2.75; HGB 11.2 gm/dL (11.4-16.0); Hypochromasia Moderate; Luc # (Auto) 0.17; Luc % (Auto) 1; Lymphocytes # (A) 1.9 k/uL (1.0-4.8); Lymphocytes % (A) 16 %; MCH 27.3 pg (25.0-35.0); MCHC 31.2 g/dL (31.0-37.0); MCV 87.6 fL (80.0-100.0); Mean Platelet Volume 9.3; Monocytes # (A) 0.4 k/uL (0-1.0); Monocytes % (A) 4 %; Neutrophils # (A) 9.1 k/uL (1.3-7.7); Neutrophils % (A) 77 %; RBC 4.11 m/uL (3.80-5.40); WBC 11.9 k/uL (3.8-10.6); WBC (Perox) 13.03
[2016-09-30 21:16] LABS: Partial Thromboplastin Time 23.4 sec (22.0-30.0); Prothrombin Time 9.9 sec (9.0-12.0)
[2016-09-30 21:18] LABS: ALT 30 U/L (9-52); AST 26 U/L (14-36); Alkaline Phosphatase 63 U/L (38-126); Anion Gap 8 mmol/L; Blood Urea Nitrogen 27 mg/dL (7-17); Calcium 8.3 mg/dL (8.4-10.2); Carbon Dioxide 24 mmol/L (22-30); Chloride 109 mmol/L (98-107); Glucose 221 mg/dL (74-99); Non-African American GFR(MDRD) >60 (>60 ml/min/1.73 sqM); Potassium 3.8 mmol/L (3.5-5.1); Sodium 141 mmol/L (137-145); Total Bilirubin 0.4 mg/dL (0.2-1.3); Total Protein 5.4 g/dL (6.3-8.2)
[2016-09-30 21:46] LABS: Creatine Kinase MB 3.1 ng/mL (0.0-2.4); Troponin I 0.043 ng/mL (0.000-0.034)
[2016-09-30] MEDS: ENOXAPARIN 40 MG/0.4 ML SYRINGE SQ SCH (22:40)
[2016-09-30] MEDS: INSULIN GLARGINE 100 UNIT/ML 10 ML VIAL SQ SCH (22:43)
[2016-09-30 23:54] LABS: Glucose,Whole Blood 207 mg/dL (75-99)
[2016-10-01] MEDS: SODIUM CHLORIDE 0.9% 1,000 ML IV SCH ×2 (01:07→19:55)
[2016-10-01] MEDS: INSULIN LISPRO (humaLOG) 300 UNIT/3 ML VIAL SQ SCH ×6 (01:09→20:48)
[2016-10-01 04:36] LABS: Glucose,Whole Blood 101 mg/dL (75-99)
[2016-10-01 06:16] LABS: Basophils % (A) 0 %; CH 26.6; CHCM 30.8; Eosinophils # (A) 0.2 k/uL (0-0.7); Eosinophils % (A) 2 %; HCT 39.4 % (34.0-46.0); HDW 2.77; HGB 12.1 gm/dL (11.4-16.0); Hypochromasia Moderate; Luc # (Auto) 0.16; Luc % (Auto) 1; Lymphocytes # (A) 1.7 k/uL (1.0-4.8); Lymphocytes % (A) 15 %; MCH 26.7 pg (25.0-35.0); MCHC 30.8 g/dL (31.0-37.0); MCV 86.6 fL (80.0-100.0); Mean Platelet Volume 8.8; Monocytes # (A) 0.5 k/uL (0-1.0); Monocytes % (A) 4 %; Neutrophils # (A) 9.1 k/uL (1.3-7.7); Neutrophils % (A) 78 %; RBC 4.55 m/uL (3.80-5.40); WBC 11.6 k/uL (3.8-10.6); WBC (Perox) 11.33
[2016-10-01 06:28] LABS: Anion Gap 10 mmol/L; Blood Urea Nitrogen 23 mg/dL (7-17); Calcium 8.9 mg/dL (8.4-10.2); Carbon Dioxide 26 mmol/L (22-30); Chloride 111 mmol/L (98-107); Glucose 86 mg/dL (74-99); Magnesium 1.6 mg/dL (1.6-2.3); Non-African American GFR(MDRD) >60 (>60 ml/min/1.73 sqM); Phosphorous 2.3 mg/dL (2.5-4.5); Potassium 3.8 mmol/L (3.5-5.1); Sodium 147 mmol/L (137-145)
[2016-10-01] MEDS: CARVEDILOL 12.5 MG TAB PO SCH ×2 (07:00→17:19)
--- NOTE | 2016-10-01 07:47 | PN ---
DATE OF SERVICE: 09/30/2016 PRESENTING COMPLAINT: Acute stroke. INTERVAL HISTORY: This patient was seen by me earlier this morning. Patient had been found unconscious with dense weakness on the left side and could not speak initially. Today this morning, she is able to move the left side. Words are coming out a bit sluggish. NG had been in place. Patient definitely more communicative. Also getting treated for UTI. Review of systems done for constitutional, cardiovascular, GI, neurological; relevant findings as above. Current medications are reviewed that include ceftriaxone, aspirin, Lantus. On examination, temperature 98.3, pulse 81, respirations 17, blood pressure 168/74. GENERAL APPEARANCE: Lying in bed, more awake. EYES: Pupils equal. Conjunctivae normal. NECK: JVD unable to assess. Mass not palpable. RESPIRATORY: Effort normal. LUNGS: Decreased breath sounds. CARDIOVASCULAR: First and second sounds normal. No edema. ABDOMEN: Soft, nontender. NEUROLOGICAL: Power on the left arm and left leg is 4/5. Speech is slow, but patient able to talk words. INVESTIGATIONS: White count 14.6. Potassium 4.7. BUN 24, creatinine 0.67. Accu-Cheks are noted. Patient's MRI of the brain shows acute, subacute ( ) nonhemorrhagic infarction at the motor strip of the right posterior frontal lobe. ASSESSMENT: 1. Acute stroke on the left side in the right MC territory ischemic in nature also affecting the speech with clinical improvement. 2. Acute urinary tract infection showing Staphylococcus aureus. 3. Chronic obstructive pulmonary disease in an ex-smoker. 4. Diabetic ketoacidosis on presentation. 5. Hyperlipidemia. 6. Essential hypertension. 7. Primary osteoarthritis of multiple joints. 8. Chronic diverticulosis. 9. Diabetes mellitus type 2 causing peripheral neuropathy. 10. 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 11. Coronary artery disease with prior history of stent. 12. Moderate aortic stenosis, nonrheumatic. 13. CODE STATUS: DO NOT RESUSCITATE. PLAN: Speech is also involved. Diet will be advanced accordingly. Continue current medication and treatment plan. Accu-Cheks to be followed.
[2016-10-01 07:58] LABS: Glucose,Whole Blood 97 mg/dL (75-99)
[2016-10-01] MEDS: CLOPIDOGREL 75 MG TAB PO SCH (08:52)
[2016-10-01] MEDS: ATORVASTATIN 80 MG TAB PO SCH (08:52)
--- NOTE | 2016-10-01 09:03 | XR ---
EXAMINATION TYPE: XR chest 1V DATE OF EXAM: 10/01/2016 6:57 AM COMPARISON: Prior chest x-ray one September 2016 HISTORY: Altered mental status, abnormal chest x-ray TECHNIQUE: Single frontal view of the chest is obtained. FINDINGS: Patient is markedly rotated. No evident pneumothorax. Heart size may be slightly enlarged although rotation accentuates the appearance. There are overlying cardiac leads. Pulmonary vascularit y and sajan not significantly changed. Difficult to exclude basilar increased density. IMPRESSION: Rotated exam, difficult to exclude basilar airspace disease, follow-up recommended
[2016-10-01] MEDS: PANTOPRAZOLE 40 MG/10 ML VIAL IVP SCH ×2 (10:41→20:48)
[2016-10-01] MEDS: MAGNESIUM OXIDE 400 MG TAB PO SCH ×3 (10:42→20:48)
[2016-10-01] MEDS: ASPIRIN 325 MG TAB PO SCH (10:42)
[2016-10-01 11:33] VITALS: BMI 30.2
[2016-10-01 12:15] LABS: Glucose,Whole Blood 124 mg/dL (75-99)
[2016-10-01] MEDS: LISINOPRIL 20 MG TAB PO SCH (12:34)
--- NOTE | 2016-10-01 13:13 | P.CONS ---
History of Present Illness - Chief Complaint Gait disturbance - History of Present Illness 75-year-old right-handed white female who was admitted to [facility] 28 found unresponsive and then with fit physical exam of left-sided weakness including leg. Most recent chest x-ray demonstrates bibasilar airspace disease. Head CT demonstrates atrophy and small vessel change. MRI demonstrated right frontal acute lesion. In by Dr. Katz who notes DKA and UTI. Symmetric Leslee Branch for stroke. PT reports moderate assistance of 2 persons for functional mobility and transfers. OT reports same. OT also reports minimal for upper dressing and maximal for lower dressing. Moderate assistance for bathing and total assistance for toileting. Previous functional history: As elicited from patient. Right-handed white female is lives in one floor home with son. Son does work. Patient retired. Patient and son share their own cooking. Patient independent with own laundry, standing shower and gait with 4 wheeled walker. Son does the driving. Regular doctors Dr. Pham. Family history of [place] in father and cancer in mother. Review of Systems Review of systems: ENT: Denies sneezes or discharge. Eyes: Denies discharge or photophobia. Cardiac: Denies chest pain or palpitation. Pulmonary: Denies cough or shortness of breath. Breast: Denies discharge or lumps. Gastrointestinal: Denies nausea, emesis, constipation, diarrhea. Genitourinary: Denies discharge or frequency. Musculoskeletal: Denies muscle or bone aches. Neurologic: Left-sided weakness and numbness. Endocrine: Denies shakes or sweats. Oncology: Denies cancers. Dermatologic: Denies rash, itching, pruritus. ALLERGY/immunology: Denies sneezes, rashes. Past Medical History Past Medical History: Coronary Artery Disease (CAD), Chest Pain / Angina, COPD, Diabetes Mellitus, Hypertension Additional Past Medical History / Comment(s): Pt admitted to [facility] with slurred speech, expressive aphasia 2ndary to TIA which resolved. During that hospitalization, son states pt had problems with "sun downers" and got up in the night and walked around, AORTIC STENOSIS, murmur, IDDM type II, peripheral neuropathy, UTIs, diverticular disease, hemorrhoids, varicosities, arthritis-c/ o hip pain, past osteomylitis R great toe with toe amputation History of Any Multi-Drug Resistant Organisms: None Reported Past Surgical History: Adenoidectomy, Appendectomy, Cholecystectomy, Heart Catheterization With Stent, Hernia Repair, Tonsillectomy Additional Past Surgical History / Comment(s): Bilateral cataract removal and lens implants, laser eye surgery, umbilical hernia repair, 04/26/15 RIGHT GREAT TOE AMPUTATION, colonoscopy. Past Anesthesia/Blood Transfusion Reactions: No Reported Reaction Additional Past Anesthesia/Blood Transfusion Reaction / Comm: no reported recation Date of Last Stent Placement:: 2009 Past Psychological History: No Psychological Hx Reported Additional Psychological History / Comment(s): Pt's son and granddaughter live with her. She uses a rolling walker to ambulate. She no longer drives-her son takes her to [employer]. She has just been set up with [id number]. There are 2 dogs in the house. No recent travel. 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 Smoking Status: Former smoker Past Alcohol Use History: None Reported Additional Past Alcohol Use History / Comment(s): Patient was a smoker for 18 years and quit when she was 40. Past Drug Use History: None Reported Additional Drug Use History / Comment(s): STARTED SMOKING AT AGE 22 YRS, QUIT AT AGE 40YRS. - Past Family History Mother History Unknown: Yes Family Medical History: Cancer Father History Unknown: Yes Family Medical History: Coronary Artery Disease (CAD), Diabetes Mellitus Medications and Allergies Home Medications Medication Instructions Recorded Confirmed Type Insulin Glargine [Lantus] 40 unit SQ HS 07/17/15 09/28/16 History INSULIN LISPRO (humaLOG) [humaLOG 12 units SQ AC-LUNCH 07/27/16 09/28/16 History (formulary)] Lisinopril [Prinivil] 20 mg PO DAILY 07/27/16 09/28/16 History Aspirin EC [Ecotrin] 325 mg PO HS 09/28/16 09/28/16 History Allergies Allergy/AdvReac Type Severity Reaction Status Date / Time No Known Allergies Allergy Verified 07/27/16 19:27 Physical Exam Vitals: Vital Signs Temp Pulse Pulse Resp BP Pulse Ox 10/01/16 12:00 98.6 F 77 20 127/58 95 10/01/16 08:30 97.3 F L 75 24 111/56 93 L 10/01/16 04:00 87 18 177/75 94 L 10/01/16 00:00 74 18 117/57 96 09/30/16 23:00 73 18 130/59 97 09/30/16 22:44 74 18 117/56 97 09/30/16 22:30 68 18 120/58 96 09/30/16 22:15 71 18 118/58 96 09/30/16 22:00 72 18 117/59 96 09/30/16 21:45 72 18 122/56 96 09/30/16 21:42 97.0 F L 73 18 130/63 96 09/30/16 20:20 76 18 126/62 97 09/30/16 20:10 97.7 F 76 18 127/61 91 L 09/30/16 19:14 74 122/61 09/30/16 15:50 81 70 18 09/30/16 13:40 98.2 F 70 18 99/52 99 Intake and Output 09/30/16 10/01/16 10/01/16 22:59 06:59 14:59 Intake Total 480 Output Total 353 Balance 127 Intake: Oral 480 Output: Urine 350 Stool 3 Other: Voiding Method Bedside Commode Bedpan Bedpan # Voids 2 1 # Bowel Movements 3 1 Weight 81 kg 85 kg 85 kg Patient Weight 10/02/16 06:59 Weight 85 kg Skin: Good color, texture, turgor. General: Overweight and comfortable appearance. Head: Normocephalic, atraumatic. Eyes: Symmetric. Pupils equal round. Ears: Symmetric. Hearing within normal limits. Mouth: Clear. Neck: Supple. Carotid without bruit. Cardiac: Regular rate and rhythm. Lungs: Clear anteriorly and posteriorly. Abdomen: Soft active nontender overweight. Extremities: Normal tone. Neurological: Mental status: Alert, cooperative, pleasant. Cranial nerves: Symmetric facial tone and trapezius. Motor: Normal strength and isolation right arm and leg. Left arm and leg with elements of isolation proximally and weak at hand and ankle. Has difficulty elevating left leg off of bed. Sensation: Intact throughout but depressed left arm. DTRs: Symmetric and equal throughout. Mobility: Did not attempt to sit or stand on my own. Results CBC & Chem 7: 10/01/16 05:41 10/01/16 05:41 Labs: Abnormal Lab Results - Last 24 Hours (Table) 09/30/16 09/30/16 09/30/16 Range/Units 16:31 20:07 20:58 WBC 11.9 H (3.8-10.6) k/uL Hgb 11.2 L (11.4-16.0) gm/dL MCHC (31.0-37.0) g/dL Neutrophils # 9.1 H (1.3-7.7) k/uL Sodium (137-145) mmol/L Chloride (98-107) mmol/L BUN (7-17) mg/dL Glucose (74-99) mg/dL POC Glucose (mg/dL) 269 H 237 H (75-99) mg/dL Calcium (8.4-10.2) mg/dL Phosphorus (2.5-4.5) mg/dL CK-MB (CK-2) (0.0-2.4) ng/mL Troponin I (0.000-0.034) ng/mL Total Protein (6.3-8.2) g/dL Albumin (3.5-5.0) g/dL 09/30/16 09/30/16 09/30/16 Range/Units 20:58 20:58 23:53 WBC (3.8-10.6) k/uL Hgb (11.4-16.0) gm/dL MCHC (31.0-37.0) g/dL Neutrophils # (1.3-7.7) k/uL Sodium (137-145) mmol/L Chloride 109 H (98-107) mmol/L BUN 27 H (7-17) mg/dL Glucose 221 H (74-99) mg/dL POC Glucose (mg/dL) 207 H (75-99) mg/dL Calcium 8.3 L (8.4-10.2) mg/dL Phosphorus (2.5-4.5) mg/dL CK-MB (CK-2) 3.1 H* (0.0-2.4) ng/mL Troponin I 0.043 H* (0.000-0.034) ng/mL Total Protein 5.4 L (6.3-8.2) g/dL Albumin 2.6 L (3.5-5.0) g/dL 10/01/16 10/01/16 10/01/16 Range/Units 04:34 05:41 05:41 WBC 11.6 H (3.8-10.6) k/uL Hgb (11.4-16.0) gm/dL MCHC 30.8 L (31.0-37.0) g/dL Neutrophils # 9.1 H (1.3-7.7) k/uL Sodium 147 H (137-145) mmol/L Chloride 111 H (98-107) mmol/L BUN 23 H (7-17) mg/dL Glucose (74-99) mg/dL POC Glucose (mg/dL) 101 H (75-99) mg/dL Calcium (8.4-10.2) mg/dL Phosphorus 2.3 L (2.5-4.5) mg/dL CK-MB (CK-2) (0.0-2.4) ng/mL Troponin I (0.000-0.034) ng/mL Total Protein (6.3-8.2) g/dL Albumin (3.5-5.0) g/dL /10/15 Range/Units 12:12 WBC (3.8-10.6) k/uL Hgb (11.4-16.0) gm/dL MCHC (31.0-37.0) g/dL Neutrophils # (1.3-7.7) k/uL Sodium (137-145) mmol/L Chloride (98-107) mmol/L BUN (7-17) mg/dL Glucose (74-99) mg/dL POC Glucose (mg/dL) 124 H (75-99) mg/dL Calcium (8.4-10.2) mg/dL Phosphorus (2.5-4.5) mg/dL CK-MB (CK-2) (0.0-2.4) ng/mL Troponin I (0.000-0.034) ng/mL Total Protein (6.3-8.2) g/dL Albumin (3.5-5.0) g/dL Chest x-ray: report reviewed (Chest x-ray demonstrates bibasilar airspace disease.) CT Scan - head: report reviewed (Head CT demonstrates atrophy and small vessel change.) MRI - head: report reviewed (MRI demonstrates right frontal acute lesion.) Assessment and Plan (1) Acute right arterial ischemic stroke, MCA (middle cerebral artery) Status: Acute Plan: Impression: 1. Gait disturbance. 2. Acute right MCA infarct resultant left hemiparesthesias. 3. DKA. 4. UTI. Right cellulitis great toe. 6. Overweight. 7. COPD. 8. Coronary disease. 9. Diabetes. 10. Hypertension. Comments and plan: At this time PT and OT are ongoing and patient demonstrated safety concerns with the ability tolerate and benefit from therapies. Speech therapy ordered. At this time, would thus anticipate need and benefit of inpatient rehab and have discussed same with patient. Consider transfer when medically appropriate.
--- NOTE | 2016-10-01 17:12 | P.PN ---
Subjective This patient is a 75-year-old right-handed white female who is being followed for history of recent left-sided weakness. She was initially seen in the intensive care unit where she was noted to have left-sided hemiplegia and gaze deviation to the right. She underwent a complete stroke evaluation which included an MRI of the brain. MRI of the brain did reveal evidence of a punctate acute ischemic infarct involving the right frontal lobe. This was felt to be the likely cause of her left-sided weakness. She has shown significant improvement in terms of the hemiparesis as well as confusional state. She was seen yesterday evening on the surgical floor and seem to be very appropriate. She had shown significant improvement in her overall mental status. Apparently shortly after being seen yesterday evening she had an episode of unresponsiveness. She was not moving her left side. A code stroke was initiated. She was sent for an immediate computed tomography scan of the brain which was reviewed and was negative for any acute changes. Patient was seen this morning by Dr. Lyn for inpatient rehab. she is to continue with PT OT evaluations as well as speech therapy. She may be a good candidate for inpatient rehab and we will await further recommendations from Dr. Lyn. According to the nursing staff the patient is being considered for transfer to [facility]. Case was discussed at length with the patient's son who is at bedside in terms of her episode yesterday evening. Apparently she came out of it very quickly and did not require any further intervention. Her repeat computed tomography scan of the brain was negative for any acute changes. Patient has been experiencing some visual hallucinations. This may be an effect of her being hospitalized. Son states that she is back to her baseline today as she was yesterday evening. He cannot explain the episode of sudden unresponsiveness that occurred yesterday. We will continue close neurological follow-up for this patient. She is being considered for transfer to a [facility] or subacute rehab possibly in the next 48 hours. Her overall prognosis at this time remains guarded. Objective - Vital Signs Vital signs: Vital Signs Temp 98.6 F 10/01/16 12:00 Pulse 77 10/01/16 12:00 Resp 20 10/01/16 12:00 BP 127/58 10/01/16 12:00 Pulse Ox 95 10/01/16 12:00 Intake & Output 09/30/16 10/01/1617 18:59 06:59 18:59 Intake Total 480 120 Output Total 706 350 Balance -226 -230 Weight 81 kg 85 kg 85 kg Intake: Oral 480 120 Output: Urine 700 350 Stool 6 Other: Voiding Method Bedside Commode Bedpan Bedside Commode Bedpan Bedpan # Voids 2 1 1 # Bowel Movements 3 1 - Exam Physical examination: PHYSICAL EXAMINATION: Patient is resting comfortably in bed. VITAL SIGNS: Blood pressure is [127/58]. Heart rate is [77]. Respiration is [20] . Temperature is [98.7]. HEENT: Head is atraumatic, neck is supple, there were no carotid bruits. CHEST: Lungs are clear to auscultation and percussion. CARDIAC: S1, S2 normal rate and rhythm. There is no murmur. ABDOMEN: Soft and nontender. Bowel sounds are present. EXTREMITIES: There is no pedal edema. Peripheral pulses are present. Neurological examination: Patient's neurological examination is unchanged from yesterday. Patient is more awake and alert today. Her speech is much improved. Neurological exam reveals only left hand aged or disabled carer weakness 3/5. - Labs CBC & Chem 7: 10/01/16 05:41 10/01/16 05:41 Labs: Abnormal Lab Results - Last 24 Hours (Table) 09/30/16 09/30/16 09/30/16 Range/Units 16:31 20:07 20:58 WBC 11.9 H (3.8-10.6) k/uL Hgb 11.2 L (11.4-16.0) gm/dL MCHC (31.0-37.0) g/dL Neutrophils # 9.1 H (1.3-7.7) k/uL Sodium (137-145) mmol/L Chloride (98-107) mmol/L BUN (7-17) mg/dL Glucose (74-99) mg/dL POC Glucose (mg/dL) 269 H 237 H (75-99) mg/dL Calcium (8.4-10.2) mg/dL Phosphorus (2.5-4.5) mg/dL CK-MB (CK-2) (0.0-2.4) ng/mL Troponin I (0.000-0.034) ng/mL Total Protein (6.3-8.2) g/dL Albumin (3.5-5.0) g/dL 09/30/16 09/30/16 09/30/16 Range/Units 20:58 20:58 23:53 WBC (3.8-10.6) k/uL Hgb (11.4-16.0) gm/dL MCHC (31.0-37.0) g/dL Neutrophils # (1.3-7.7) k/uL Sodium (137-145) mmol/L Chloride 109 H (98-107) mmol/L BUN 27 H (7-17) mg/dL Glucose 221 H (74-99) mg/dL POC Glucose (mg/dL) 207 H (75-99) mg/dL Calcium 8.3 L (8.4-10.2) mg/dL Phosphorus (2.5-4.5) mg/dL CK-MB (CK-2) 3.1 H* (0.0-2.4) ng/mL Troponin I 0.043 H* (0.000-0.034) ng/mL Total Protein 5.4 L (6.3-8.2) g/dL Albumin 2.6 L (3.5-5.0) g/dL 10/01/16 10/01/16 10/01/16 Range/Units 04:34 05:41 05:41 WBC 11.6 H (3.8-10.6) k/uL Hgb (11.4-16.0) gm/dL MCHC 30.8 L (31.0-37.0) g/dL Neutrophils # 9.1 H (1.3-7.7) k/uL Sodium 147 H (137-145) mmol/L Chloride 111 H (98-107) mmol/L BUN 23 H (7-17) mg/dL Glucose (74-99) mg/dL POC Glucose (mg/dL) 101 H (75-99) mg/dL Calcium (8.4-10.2) mg/dL Phosphorus 2.3 L (2.5-4.5) mg/dL CK-MB (CK-2) (0.0-2.4) ng/mL Troponin I (0.000-0.034) ng/mL Total Protein (6.3-8.2) g/dL Albumin (3.5-5.0) g/dL 10/01/16 Range/Units 12:12 WBC (3.8-10.6) k/uL Hgb (11.4-16.0) gm/dL MCHC (31.0-37.0) g/dL Neutrophils # (1.3-7.7) k/uL Sodium (137-145) mmol/L Chloride (98-107) mmol/L BUN (7-17) mg/dL Glucose (74-99) mg/dL POC Glucose (mg/dL) 124 H (75-99) mg/dL Calcium (8.4-10.2) mg/dL Phosphorus (2.5-4.5) mg/dL CK-MB (CK-2) (0.0-2.4) ng/mL Troponin I (0.000-0.034) ng/mL Total Protein (6.3-8.2) g/dL Albumin (3.5-5.0) g/dL Assessment and Plan (1) Acute right arterial ischemic stroke, MCA (middle cerebral artery) Status: Acute Code(s): I63.511 - CEREB INFRC D/T UNSP OCCLS OR STENOS OF RIGHT MID CEREB ART (2) Diabetic ketoacidosis Status: Acute Code(s): E13.10 - OTH DIABETES MELLITUS WITH KETOACIDOSIS WITHOUT COMA (3) Transient cerebral ischemia Status: Acute Code(s): G45.9 - TRANSIENT CEREBRAL ISCHEMIC ATTACK, UNSPECIFIED (4) Hyperlipemia Status: Chronic Code(s): E78.5 - HYPERLIPIDEMIA, UNSPECIFIED Plan: This patient 75-year-old female is being evaluated for recent right hemispheric stroke. Patient had an episode yesterday evening of sudden unresponsiveness with left-sided weakness. She was sent for an immediate computed tomography scan of the brain which was negative for any new changes. She was transferred to [facility]. Son states that she came out of this episode very quickly and return to normal baseline level of function. Code Stroke was initiated yesterday but was canceled after she returned back to baseline very quickly. She is currently on Plavix and aspirin for secondary stroke prevention. Patient is returned back to normal level of function in terms of her mental status. We will continue close neurological follow-up for the patient. She is being evaluated for transfer to either [facility] or [facility]. Her overall prognosis at this time remains guarded. Case was discussed at length with the patient's son who is at bedside. All of his questions were answered. He is aware of her guarded condition.
[2016-10-01 17:16] LABS: Glucose,Whole Blood 197 mg/dL (75-99)
[2016-10-01] MEDS: CEPHALEXIN 250 MG CAP PO SCH ×2 (17:19→20:49)
--- NOTE | 2016-10-01 18:41 | PN ---
DATE OF SERVICE: 10/01/2016 PRESENTING COMPLAINT: Acute stroke. This patient presented with acute stroke with dense left-sided weakness, not able to speak and then subsequently patient left-sided weakness improved. The patient started speaking. Yesterday again the patient had an episode where she became weak on the left side. Speech became garbled. Repeat CAT scan unremarkable. Patient moved to [facility]. Patient speech is coming back and again the left side is getting better. Though still weak. Patient's son is at the bedside. Review of systems done for constitutional, cardiovascular, GI, pulmonary; relevant findings as above. Current medications are reviewed and include IV ceftriaxone, Plavix, aspirin and Lipitor. On examination, temperature 97.3, pulse 75, respiratory rate 24, blood pressure 101/56, pulse ox 93% on room air. GENERAL APPEARANCE: Lying in bed, awake. EYES: Pupils equal. Conjunctivae normal. NECK: JVD unable to assess. Mass not palpable. RESPIRATORY: Effort normal. LUNGS: Diminished breath sounds. CARDIOVASCULAR: First and second sounds normal. No edema. ABDOMEN: Soft, nontender. Liver and spleen not palpable. NEUROLOGICAL: Power in the left arm and left leg is 4/5. Speech is slow, but patient is appropriate. INVESTIGATIONS: White count 11.6. Potassium 3.8. BUN 23, creatinine 0.70. The patient repeat CT scan of the brain last night following the episode did not change. ASSESSMENT: 1. Acute stroke in the left side and right middle cerebral artery territory, ischemic in nature also affecting the speech with clinical improvement with one episode of recurrence. 2. Acute urinary tract infection from methicillin susceptible Staphylococcus aureus. 3. Chronic obstructive pulmonary disease in an ex-smoker. 4. Diabetic ketoacidosis on presentation. 5. Hyperlipidemia. 6. Essential hypertension. 7. Primary osteoarthritis multiple joints. 8. Chronic diverticulosis. 9. Diabetes mellitus type 2, causing peripheral neuropathy. 10. 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 11. Coronary artery disease, prior history of stent. 12. Moderate aortic stenosis, nonrheumatic. 13. CODE STATUS: DO NOT RESUSCITATE. PLAN: Care was discussed with the patient and his son at the bedside. Looking into inpatient rehab. The patient will be watched at least another 24 hours to make sure there is stability and further input from neurology. Patient's sugars are being decent. We will switch the ceftriaxone to Keflex to finish a total of 5 days.
[2016-10-01 20:44] LABS: Glucose,Whole Blood 251 mg/dL (75-99)
[2016-10-01] MEDS: ENOXAPARIN 40 MG/0.4 ML SYRINGE SQ SCH (20:47)
[2016-10-01] MEDS: INSULIN GLARGINE 100 UNIT/ML 10 ML VIAL SQ SCH (20:48)
[2016-10-02] MEDS ORDERED: HALOPERIDOL LACTATE 5 MG/ML 1 ML VIAL IM STA (00:50)
[2016-10-02] MEDS ORDERED: LORazepam 2 MG/ML SYRINGE IV PRN (02:05)
[2016-10-02 06:53] LABS: Glucose,Whole Blood 62 mg/dL (75-99)
[2016-10-02] MEDS ORDERED: DEXTROSE 50%-WATER 50 ML SYRINGE IVP ONE (06:55)
[2016-10-02] MEDS: INSULIN LISPRO (humaLOG) 300 UNIT/3 ML VIAL SQ SCH ×4 (06:59→22:22)
[2016-10-02 07:20] LABS: Glucose,Whole Blood 115 mg/dL (75-99)
[2016-10-02] MEDS: ASPIRIN 300 MG SUPP RECTAL SCH (09:08)
[2016-10-02] MEDS: CARVEDILOL 12.5 MG TAB PO SCH ×2 (09:20→16:38)
[2016-10-02] MEDS: ASPIRIN 325 MG TAB PO SCH (09:20)
[2016-10-02] MEDS: LISINOPRIL 20 MG TAB PO SCH (09:21)
[2016-10-02] MEDS: ATORVASTATIN 80 MG TAB PO SCH (09:21)
[2016-10-02] MEDS: CLOPIDOGREL 75 MG TAB PO SCH (09:21)
[2016-10-02] MEDS: CEPHALEXIN 250 MG CAP PO SCH ×4 (09:21→19:54)
[2016-10-02] MEDS: PANTOPRAZOLE 40 MG TABLET PO SCH ×2 (09:22→19:54)
[2016-10-02] MEDS: MAGNESIUM OXIDE 400 MG TAB PO SCH ×3 (09:22→19:55)
[2016-10-02 10:22] LABS: Basophils # (A) 0.1 k/uL (0-0.2); Basophils % (A) 1 %; CH 26.9; CHCM 31.2; Eosinophils # (A) 0.2 k/uL (0-0.7); Eosinophils % (A) 2 %; HCT 35.9 % (34.0-46.0); HDW 2.82; HGB 11.4 gm/dL (11.4-16.0); Hypochromasia Slight; Luc # (Auto) 0.23; Luc % (Auto) 3; Lymphocytes # (A) 1.9 k/uL (1.0-4.8); Lymphocytes % (A) 22 %; MCH 27.4 pg (25.0-35.0); MCHC 31.7 g/dL (31.0-37.0); MCV 86.7 fL (80.0-100.0); Mean Platelet Volume 10.1; Monocytes # (A) 0.5 k/uL (0-1.0); Monocytes % (A) 6 %; Neutrophils # (A) 5.7 k/uL (1.3-7.7); Neutrophils % (A) 66 %; RBC 4.14 m/uL (3.80-5.40); RDW 15.2 % (11.5-15.5); WBC 8.6 k/uL (3.8-10.6); WBC (Perox) 9.43
[2016-10-02 10:43] LABS: Anion Gap 8 mmol/L; Blood Urea Nitrogen 15 mg/dL (7-17); Calcium 8.7 mg/dL (8.4-10.2); Carbon Dioxide 26 mmol/L (22-30); Chloride 113 mmol/L (98-107); Glucose 110 mg/dL (74-99); Magnesium 1.5 mg/dL (1.6-2.3); Non-African American GFR(MDRD) >60 (>60 ml/min/1.73 sqM); Phosphorous 2.8 mg/dL (2.5-4.5); Potassium 3.7 mmol/L (3.5-5.1); Sodium 147 mmol/L (137-145)
[2016-10-02 11:54] LABS: Glucose,Whole Blood 129 mg/dL (75-99)
--- NOTE | 2016-10-02 12:50 | P.PN ---
Subjective Ms Kowalski comes in to the hospital with the left-sided weakness. Patient was also noted to have diabetic ketoacidosis on initial evaluation. Patient was initially evaluated in the intensive care unit thereafter triaged to the floor. Patient apparently overnight has had episodes of confusion and hallucinations and the patient did get extremely agitated. She received some mild Ativan thereafter. Patient is cleared to be admitted to inpatient rehab from the previous note. Today patient is arousable was answering questions appropriately. Continues to complain of left-sided weakness. Denies any chest pain, difficulty breathing, nausea, vomiting, abdominal pain. Objective - Vital Signs Vital signs: Vital Signs Temp 97.6 F 10/02/16 08:00 Pulse 79 10/02/16 08:00 Resp 16 10/02/16 08:00 BP 142/59 10/02/16 08:00 Pulse Ox 93 L 10/02/16 08:00 Intake & Output 10/01/16 10/02/16 10/02/16 18:59 06:59 18:59 Intake Total 360 0 Output Total 350 550 Balance 10 -550 0 Weight 85 kg 82 kg Intake: Oral 360 0 Output: Urine 350 550 Other: Voiding Method Bedside Commode Bedside Commode Bedside Commode Bedpan Bedpan Bedpan Diaper # Voids 1 1 - Exam Gen. appearance slightly drowsy however answers questions appropriately Neck is supple no JVD Heart S1-S2 heart regular rate and rhythm no murmurs. Lungs good air entry clear to auscultation Abdomen is soft nontender no organomegaly Lower extremities no edema noted. Neurologic exam Strength is 3 out of 5 in the both upper and lower left side or graft strength is 5 out of 5 on the right side. Does have a slight droop with some change in speech. Other cranial nerves are grossly intact - Labs CBC & Chem 7: 10/02/16 10:08 10/02/16 10:08 Labs: Abnormal Lab Results - Last 24 Hours (Table) 10/01/16 10/01/16 10/02/16 Range/Units 17:00 20:44 06:52 Sodium (137-145) mmol/L Chloride (98-107) mmol/L Glucose (74-99) mg/dL POC Glucose (mg/dL) 197 H 251 H 62 L (75-99) mg/dL Magnesium (1.6-2.3) mg/dL 0310/02/16 10/02/16 Range/Units 07:19 10:08 11:52 Sodium 147 H (137-145) mmol/L Chloride 113 H (98-107) mmol/L Glucose 110 H (74-99) mg/dL POC Glucose (mg/dL) 115 H 129 H (75-99) mg/dL Magnesium 1.5 L (1.6-2.3) mg/dL Assessment and Plan Plan: #1 acute right MCA territory CVA causing left-sided weakness #2 Acute delirium #3 diabetic ketoacidosis that is currently improved #4 history of hypertension #5 dyslipidemia #6 CAD #7 history of chronic diverticulosis #8 moderate aortic stenosis #9 urinary tract infection with MSSA. plan Continue ongoing care. Her psychiatrist evaluated the patient. Patient was started on Seroquel 50mg at bedtime. It is likely critical care delirium. Continue ongoing care including antibiotics. The patient improved we'll consider transfer to inpatient rehab tomorrow.
[2016-10-02] MEDS: SODIUM CHLORIDE 0.9% 1,000 ML IV SCH (12:55)
--- NOTE | 2016-10-02 15:26 | P.PN ---
Subjective This patient is a 75-year-old right-handed white female who was initially evaluated in the intensive care unit for acute left-sided weakness. She underwent a complete stroke evaluation which included an MRI of the brain. MRI of the brain revealed the patient to have suffered a right hemispheric stroke. She did show improvement in terms of her left-sided weakness but continues to have some residual deficit. She has a history of previous stroke as well. She is currently on a combination of Plavix and aspirin for secondary stroke prevention. Apparently yesterday evening the patient became very confused and disoriented. She was having visual hallucinations. She was seen by psychiatry who recommended starting her on Seroquel for further management of ICU delirium. She is resting comfortably today. She continues to have some left- sided weakness. She is showing signs of cognitive impairment likely secondary to her previous history of stroke and vascular changes on MRI imaging. Patient does follow some simple commands. She denies any headache today. She is awaiting transfer to the inpatient rehab unit at [facility] possibly tomorrow or Tuesday. We will continue close neurological follow-up for the patient during this admission. Objective - Vital Signs Vital signs: Vital Signs Temp 98.0 F 10/02/16 12:00 Pulse 73 10/02/16 12:00 Resp 18 10/02/16 12:00 BP 115/87 10/02/16 12:00 Pulse Ox 95 10/02/16 12:00 Intake & Output 10/01/16 10/02/16 10/02/16 18:59 06:59 18:59 Intake Total 360 10 Output Total 350 550 Balance 10 -550 10 Weight 85 kg 82 kg Intake: IV 10 Invasive Line 4 10 Oral 360 0 Output: Urine 350 550 Other: Voiding Method Bedside Commode Bedside Commode Bedside Commode Bedpan Bedpan Bedpan Diaper # Voids 1 1 - Exam Physical examination: PHYSICAL EXAMINATION: Patient is resting comfortably in bed. VITAL SIGNS: Blood pressure is [115/87]. Heart rate is [73]. Respiration is [18] . Temperature is [98.0]. HEENT: Head is atraumatic, neck is supple, there were no carotid bruits. CHEST: Lungs are clear to auscultation and percussion. CARDIAC: S1, S2 normal rate and rhythm. There is no murmur. ABDOMEN: Soft and nontender. Bowel sounds are present. EXTREMITIES: There is no pedal edema. Peripheral pulses are present. Neurological examination: Patient's neurological examination is unchanged from yesterday. Patient is more awake and alert today. Her speech is much improved. Neurological exam reveals only left hand city treasurer weakness 3/5. - Labs CBC & Chem 7: 10/02/16 10:08 10/02/16 10:08 Labs: Abnormal Lab Results - Last 24 Hours (Table) 10/01/16 10/01/16 10/02/16 Range/Units 17:00 20:44 06:52 Sodium (137-145) mmol/L Chloride (98-107) mmol/L Glucose (74-99) mg/dL POC Glucose (mg/dL) 197 H 251 H 62 L (75-99) mg/dL Magnesium (1.6-2.3) mg/dL 10/02/16 10/02/16 10/02/16 Range/Units 07:19 10:08 11:52 Sodium 147 H (137-145) mmol/L Chloride 113 H (98-107) mmol/L Glucose 110 H (74-99) mg/dL POC Glucose (mg/dL) 115 H 129 H (75-99) mg/dL Magnesium 1.5 L (1.6-2.3) mg/dL Assessment and Plan (1) Acute right arterial ischemic stroke, MCA (middle cerebral artery) Status: Acute Code(s): I63.511 - CEREB INFRC D/T UNSP OCCLS OR STENOS OF RIGHT MID CEREB ART (2) Diabetic ketoacidosis Status: Acute Code(s): E13.10 - OTH DIABETES MELLITUS WITH KETOACIDOSIS WITHOUT COMA (3) Transient cerebral ischemia Status: Acute Code(s): G45.9 - TRANSIENT CEREBRAL ISCHEMIC ATTACK, UNSPECIFIED (4) Hyperlipemia Status: Chronic Code(s): E78.5 - HYPERLIPIDEMIA, UNSPECIFIED Plan: This patient is a 75-year-old female who is being followed for recent history of acute right hemispheric stroke. She was initially evaluated in the intensive care unit and then transferred to the medical floor. She has continued to show improvement in her mental status off-and-on. She continues to have left-sided hemiparesis from her stroke. Yesterday evening she had increased hallucinations and agitation. Psychiatry was consult and she was started on Seroquel. Patient is awaiting transfer to the inpatient rehab unit at [facility]. She will require ongoing PTOT and speech therapy assessment and treatment. She is to continue on Plavix and aspirin for secondary stroke prevention. We will need close monitoring of her cognitive function due to the acute delirium. Her overall prognosis at this time remains guarded. We will continue close neurological follow-up for the patient until she is able to be transferred to the inpatient rehab unit. Her overall prognosis at this time remains guarded.
--- NOTE | 2016-10-02 16:27 | P.CN ---
Psychiatric Consult - . Consult date: 10/02/16 Consult:: IDENTIFYING DATA: Ms. Kowalski is a 75-year-old female admitted to medicine service on 09/28/2016 with lethargy, obtundation and left sided weakness. Medical and neurological evaluation was consistent with a right arterial ischemic stroke MCA. HISTORY OF PRESENT ILLNESS: Medicine consulted psychiatry due to confusion and visual hallucinations. Ms. Kowalski became agitated yesterday evening and required administration of 5 mg of haloperidol IM. Ms. Kowalski was aware of the reason for the consult. She stated that her physician wished to have a psychiatric consult because she was "seeing things". She talked about seeing "a man white suit" and "a girl with a "beautiful pink dress." She also talked about seeing a large clock behind her son when he was visiting. She described several images that occurred during the course of his hospitalization. The visual hallucinations appear to have occurred more frequently when she was in ICU and while she is been on the medicine unit mostly during the evening and nighttime. She denied auditory hallucinations or other symptoms suggestive of a psychosis such as thought insertion, thought broadcasting and thought control She feels depressed but denied hopelessness or worthlessness. PAST PSYCHIATRIC HISTORY: I consulted on her on 07/30/2016 due to confusion and agitation. During that evaluation I had the opportunity to speak with her son who described loss of memory and decreased ability to care for herself. As a result of her forgetfulness he has been limiting her use of the kitchen. I performed a Mini-Mental State Exam and her total score was 29/30. Her only cognitive difficulty was copying the intersecting pentagrams suggesting impairment in visual-spatial functioning. She has no history of mental illness and no past psychiatric hospitalizations.. MENTAL STATUS EXAM: She presented as a pleasant 75-year-old female who is laying comfortably in her bed. She maintained eye contact and attended to interview. She had a blunted but bright facial expression. She is alert and oriented to person, place and time. She showed psychosis slight psychomotor retardation but no abnormal movements. Her speech was dysarthric with normal rate, rhythm and volume. Her affect was slightly depressed. She denied suicidal ideation or wishes. She denied depressive cognitions such as hopelessness, helplessness and worthlessness she did not express ideas of reference or paranoid ideation. Her thinking was concrete but her associations were coherent and logical. She described true visual hallucinations but did not appear to be responding to internal stimuli during our interview. We completed the [employer] Memory Concentration test. Her total weighted error score was 8; total weighted error score greater than 10 is consistent with dementia. She knew the month and the year. She estimated time correctly within 1 hour actual time. She was able to register the memory phrase "Dayo Cain, [address] [place] [address].". She is able to count backwards from 20 and made one error in naming the months of the year backwards ( beginning with July). She was able to remember 3 of the 5 elements of memory phrase. 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 The dose may be adjusted based on clinical effect and side effects. There is no indication for transfer to psychiatric unit or a referral for outpatient mental health services. 10/02/16 16:12
[2016-10-02 16:37] LABS: Glucose,Whole Blood 208 mg/dL (75-99)
[2016-10-02] MEDS: ENOXAPARIN 40 MG/0.4 ML SYRINGE SQ SCH (19:54)
[2016-10-02] MEDS: QUEtiapine 50 MG TAB PO SCH (19:54)
[2016-10-02 21:33] LABS: Glucose,Whole Blood 223 mg/dL (75-99)
[2016-10-02] MEDS: INSULIN GLARGINE 100 UNIT/ML 10 ML VIAL SQ SCH (22:17)
[2016-10-03 06:26] LABS: Glucose,Whole Blood 100 mg/dL (75-99)
[2016-10-03 06:38] LABS: Basophils % (A) 0 %; CH 26.5; CHCM 30.5; Eosinophils # (A) 0.2 k/uL (0-0.7); Eosinophils % (A) 2 %; HCT 34.7 % (34.0-46.0); HDW 2.72; HGB 10.5 gm/dL (11.4-16.0); Hypochromasia Moderate; Luc # (Auto) 0.26; Luc % (Auto) 3; Lymphocytes # (A) 2.3 k/uL (1.0-4.8); Lymphocytes % (A) 24 %; MCH 26.5 pg (25.0-35.0); MCHC 30.4 g/dL (31.0-37.0); MCV 87.3 fL (80.0-100.0); Mean Platelet Volume 8.9; Monocytes # (A) 0.6 k/uL (0-1.0); Monocytes % (A) 6 %; Neutrophils # (A) 6.3 k/uL (1.3-7.7); Neutrophils % (A) 65 %; RBC 3.97 m/uL (3.80-5.40); RDW 14.9 % (11.5-15.5); WBC 9.7 k/uL (3.8-10.6); WBC (Perox) 9.99
[2016-10-03] MEDS: INSULIN LISPRO (humaLOG) 300 UNIT/3 ML VIAL SQ SCH ×4 (06:45→20:37)
[2016-10-03 06:53] LABS: ALT 31 U/L (9-52); AST 17 U/L (14-36); Alkaline Phosphatase 68 U/L (38-126); Anion Gap 6 mmol/L; Blood Urea Nitrogen 13 mg/dL (7-17); Calcium 8.7 mg/dL (8.4-10.2); Carbon Dioxide 29 mmol/L (22-30); Chloride 109 mmol/L (98-107); Glucose 104 mg/dL (74-99); Magnesium 1.6 mg/dL (1.6-2.3); Non-African American GFR(MDRD) >60 (>60 ml/min/1.73 sqM); Potassium 4.1 mmol/L (3.5-5.1); Sodium 144 mmol/L (137-145); Total Bilirubin 0.4 mg/dL (0.2-1.3); Total Protein 5.2 g/dL (6.3-8.2)
[2016-10-03] MEDS: LISINOPRIL 20 MG TAB PO SCH (08:37)
[2016-10-03] MEDS: CEPHALEXIN 250 MG CAP PO SCH ×4 (08:37→20:39)
[2016-10-03] MEDS: PANTOPRAZOLE 40 MG TABLET PO SCH ×2 (08:37→20:39)
[2016-10-03] MEDS: CARVEDILOL 12.5 MG TAB PO SCH ×2 (08:38→19:16)
[2016-10-03] MEDS: MAGNESIUM OXIDE 400 MG TAB PO SCH ×3 (08:38→20:38)
[2016-10-03] MEDS: ASPIRIN 325 MG TAB PO SCH (08:39)
[2016-10-03] MEDS: CLOPIDOGREL 75 MG TAB PO SCH (08:39)
[2016-10-03] MEDS: ATORVASTATIN 80 MG TAB PO SCH (08:39)
[2016-10-03 11:55] LABS: Glucose,Whole Blood 138 mg/dL (75-99)
--- NOTE | 2016-10-03 12:20 | P.DS ---
Providers Date of admission: 09/28/16 14:22 Attending physician: Josiah Houser Consults: 09/28/16 21:07 Consult Physician Urgent Consulting Provider: Marry Palomo Consult Reason/Comments: cva Do you want consulting provider notified?: Yes 10/01/16 11:54 Consult Physician Urgent Consulting Provider: Coy Lyn Consult Reason/Comments: inpatient rehab Do you want consulting provider notified?: Yes 10/01/16 22:17 Consult Physician Routine Consulting Provider: Edwina Beck Consult Reason/Comments: increased confusion Do you want consulting provider notified?: Yes, Notify in am [facility] Course: Ms Kowalski comes in to the hospital with the left-sided weakness. Patient was also noted to have diabetic ketoacidosis on initial evaluation. Patient was initially evaluated in the intensive care unit thereafter triaged to the floor. Patient apparently overnight has had episodes of confusion and hallucinations and the patient did get extremely agitated. She received some mild Ativan thereafter. Patient is cleared to be admitted to inpatient rehab from the previous note. Today patient is arousable was answering questions appropriately. Continues to complain of left-sided weakness. Denies any chest pain, difficulty breathing, nausea, vomiting, abdominal pain. Objective - Vital Signs Vital signs: Vital Signs Temp 97.6 F 10/02/16 08:00 Pulse 79 10/02/16 08:00 Resp 16 10/02/16 08:00 BP 142/59 10/02/16 08:00 Pulse Ox 93 L 10/02/16 08:00 Intake & Output 10/01/16 10/02/16 10/02/16 18:59 06:59 18:59 Intake Total 360 0 Output Total 350 550 Balance 10 -550 0 Weight 85 kg 82 kg Intake: Oral 360 0 Output: Urine 350 550 Other: Voiding Method Bedside Commode Bedside Commode Bedside Commode Bedpan Bedpan Bedpan Diaper # Voids 1 1 - Exam Gen. appearance slightly drowsy however answers questions appropriately Neck is supple no JVD Heart S1-S2 heart regular rate and rhythm no murmurs. Lungs good air entry clear to auscultation Abdomen is soft nontender no organomegaly Lower extremities no edema noted. Neurologic exam Strength is 4 out of 5 on the left upper extremity strength is 5 out of 5 in the left lower extremity right upper and lower extremity strength is good. There is some dysdiadochokinesia. Fine motor skills are slightly affected. Assessment and Plan Plan: #1 acute right MCA territory CVA causing left-sided weakness #2 Acute delirium #3 diabetic ketoacidosis that is currently improved #4 history of hypertension #5 dyslipidemia #6 CAD #7 history of chronic diverticulosis #8 moderate aortic stenosis #9 urinary tract infection with MSSA. No new overnight events. Continue seroquel 50 mg at bedtime. Patient will be discharged to inpatient rehab at this time. Patient Condition at Discharge: Serious Plan - Discharge Summary Discharge Medication List Insulin Glargine [Lantus] 40 unit SQ HS 07/17/15 [History] Nitroglycerin Sl Tabs [Nitrostat] 0.4 mg SUBLINGUAL Q5M PRN #25 tab 07/22/15 [Rx ] INSULIN LISPRO (humaLOG) [humaLOG (formulary)] 12 units SQ AC-LUNCH 07/27/16 [ History] Lisinopril [Prinivil] 20 mg PO DAILY 07/27/16 [History] Atorvastatin [Lipitor] 40 mg PO DAILY #30 tab 07/30/16 [Rx] Carvedilol [Coreg*] 25 mg PO BID-W/MEALS #60 tab 07/30/16 [Rx] Clopidogrel [Plavix] 75 mg PO DAILY #30 tab 07/30/16 [Rx] Aspirin EC [Ecotrin] 325 mg PO HS 09/28/16 [History] Follow up Appointment(s)/Referral(s): Malcolm Phan MD [Primary Care Provider] - 1-2 days Patient Instructions/Handouts: Ischemic Stroke (DC), Stroke (DC)
[2016-10-03] MEDS: SODIUM CHLORIDE 0.9% 1,000 ML IV SCH (12:35)
--- NOTE | 2016-10-03 13:13 | P.PN ---
Subjective This patient is a 75-year-old right-handed white female who was initially evaluated in the intensive care unit for acute left-sided weakness. She underwent a complete stroke evaluation which included an MRI of the brain. MRI of the brain revealed the patient to have suffered a right hemispheric stroke. She did show improvement in terms of her left-sided weakness but continues to have some residual deficit. She has a history of previous stroke as well. She is currently on a combination of Plavix and aspirin for secondary stroke prevention. Apparently yesterday evening the patient became very confused and disoriented. She was having visual hallucinations. She was seen by psychiatry who recommended starting her on Seroquel for further management of ICU delirium. Psychiatry also feels she may have a component of multi-infarct dementia. Her delirium has shown some improvement today. She is resting comfortably today. She continues to have some left-sided weakness. She is showing signs of cognitive impairment likely secondary to her previous history of stroke and vascular changes on MRI imaging. Patient does follow some simple commands. She denies any headache today. She is awaiting transfer to the inpatient rehab unit at [facility] possibly today if a be is available. We will continue close neurological follow-up for the patient during this admission. Objective - Vital Signs Vital signs: Vital Signs Temp 96.8 F L 10/03/16 08:00 Pulse 87 10/03/16 08:00 Resp 16 10/03/16 08:00 BP 155/68 10/03/16 08:00 Pulse Ox 95 10/03/16 08:00 Intake & Output 10/02/16 10/03/16 10/03/16 18:59 06:59 18:59 Intake Total 370 250 780 Output Total 600 Balance 370 -350 780 Weight 81.1 kg Intake: IV 10 10 Invasive Line 4 10 10 Oral 360 250 770 Output: Urine 600 Other: Voiding Method Bedpan Bedside Commode Bedside Commode Diaper Bedpan Diaper Diaper # Voids 2 1 - Exam Physical examination: PHYSICAL EXAMINATION: Patient is resting comfortably in bed. VITAL SIGNS: Blood pressure is [155/68]. Heart rate is [87]. Respiration is [16] . Temperature is [97.0]. HEENT: Head is atraumatic, neck is supple, there were no carotid bruits. CHEST: Lungs are clear to auscultation and percussion. CARDIAC: S1, S2 normal rate and rhythm. There is no murmur. ABDOMEN: Soft and nontender. Bowel sounds are present. EXTREMITIES: There is no pedal edema. Peripheral pulses are present. Neurological examination: Patient's neurological examination is unchanged from yesterday. Patient is more awake and alert today. Her speech is much improved. 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 - Labs CBC & Chem 7: 10/03/16 06:06 10/03/16 06:06 Labs: Abnormal Lab Results - Last 24 Hours (Table) 10/02/16 10/02/16 10/03/16 Range/Units 16:36 21:31 06:06 Hgb 10.5 L (11.4-16.0) gm/dL MCHC 30.4 L (31.0-37.0) g/dL Chloride (98-107) mmol/L Glucose (74-99) mg/dL POC Glucose (mg/dL) 208 H 223 H (75-99) mg/dL Total Protein (6.3-8.2) g/dL Albumin (3.5-5.0) g/dL 10/03/16 10/03/16 10/03/16 Range/Units 06:06 06:24 11:54 Hgb (11.4-16.0) gm/dL MCHC (31.0-37.0) g/dL Chloride 109 H (98-107) mmol/L Glucose 104 H (74-99) mg/dL POC Glucose (mg/dL) 100 H 138 H (75-99) mg/dL Total Protein 5.2 L (6.3-8.2) g/dL Albumin 2.5 L (3.5-5.0) g/dL Assessment and Plan (1) Acute right arterial ischemic stroke, MCA (middle cerebral artery) Status: Acute Code(s): I63.511 - CEREB INFRC D/T UNSP OCCLS OR STENOS OF RIGHT MID CEREB ART (2) Diabetic ketoacidosis Status: Acute Code(s): E13.10 - OTH DIABETES MELLITUS WITH KETOACIDOSIS WITHOUT COMA (3) Transient cerebral ischemia Status: Acute Code(s): G45.9 - TRANSIENT CEREBRAL ISCHEMIC ATTACK, UNSPECIFIED (4) Hyperlipemia Status: Chronic Code(s): E78.5 - HYPERLIPIDEMIA, UNSPECIFIED Plan: This patient is a 75-year-old female initially evaluated in the intensive care unit for acute left-sided weakness. She underwent a stroke evaluation which included MRI imaging of the brain. MRI indicated a acute right MCA stroke. She also developed acute ICU delirium and was transferred out of the ICU. She has been doing fairly well since discharge out of the intensive care unit. She is to continue on Plavix and aspirin for secondary stroke prevention. She was seen by psychiatry who diagnosed her with delirium as well as multi-infarct dementia. She is to continue on Seroquel for further management as per the recommendations of psychiatry. Neurologically she remains relatively intact with left-sided hemiparesthesias. She is being considered for transfer to the inpatient rehab unit at [facility] for ongoing PT OT and speech therapy. Patient likely will be discharge to the rehab unit today or tomorrow. We will continue close neurological follow-up for this patient during this admission. Her overall prognosis at this time remains guarded.
[2016-10-03 17:19] LABS: Glucose,Whole Blood 250 mg/dL (75-99)
[2016-10-03 20:18] LABS: Glucose,Whole Blood 285 mg/dL (75-99)
[2016-10-03] MEDS: INSULIN GLARGINE 100 UNIT/ML 10 ML VIAL SQ SCH (20:37)
[2016-10-03] MEDS: ENOXAPARIN 40 MG/0.4 ML SYRINGE SQ SCH (20:38)
[2016-10-03] MEDS: QUEtiapine 50 MG TAB PO SCH (20:39)
[2016-10-04 07:26] LABS: Glucose,Whole Blood 215 mg/dL (75-99)
[2016-10-04 08:19] VITALS: BP 130/59; PULSE 75; RESP 16; TEMP 98
[2016-10-04] MEDS: LISINOPRIL 20 MG TAB PO SCH (08:56)
[2016-10-04] MEDS: ATORVASTATIN 80 MG TAB PO SCH (08:56)
[2016-10-04] MEDS: CARVEDILOL 12.5 MG TAB PO SCH (08:56)
[2016-10-04] MEDS: PANTOPRAZOLE 40 MG TABLET PO SCH (08:56)
[2016-10-04] MEDS: CLOPIDOGREL 75 MG TAB PO SCH (08:57)
[2016-10-04] MEDS: CEPHALEXIN 250 MG CAP PO SCH ×2 (08:57→12:16)
[2016-10-04] MEDS: ASPIRIN 325 MG TAB PO SCH (08:57)
[2016-10-04] MEDS: INSULIN LISPRO (humaLOG) 300 UNIT/3 ML VIAL SQ SCH ×2 (08:57→12:17)
[2016-10-04] MEDS: MAGNESIUM OXIDE 400 MG TAB PO SCH (08:58)
[2016-10-04 12:05] LABS: Glucose,Whole Blood 166 mg/dL (75-99)
[2016-10-04] MEDS: ACETAMINOPHEN TAB 325 MG TAB PO PRN (12:24)
--- NOTE | 2016-10-04 13:45 | P.DS ---
Providers Date of admission: 09/28/16 14:22 Attending physician: Josiah Houser Consults: 09/28/16 21:07 Consult Physician Urgent Consulting Provider: Marry Palmoo Consult Reason/Comments: cva Do you want consulting provider notified?: Yes 10/01/16 11:54 Consult Physician Urgent Consulting Provider: Coy Lyn Consult Reason/Comments: inpatient rehab Do you want consulting provider notified?: Yes 10/01/16 22:17 Consult Physician Routine Consulting Provider: Edwina Beck Consult Reason/Comments: increased confusion Do you want consulting provider notified?: Yes, Notify in am [facility] Course: Ms Kowalski comes in to the hospital with the left-sided weakness. Patient was also noted to have diabetic ketoacidosis on initial evaluation. Patient was initially evaluated in the intensive care unit thereafter triaged to the floor. Patient apparently overnight has had episodes of confusion and hallucinations and the patient did get extremely agitated. She received some mild Ativan thereafter. Patient is cleared to be admitted to inpatient rehab from the previous note. Today patient is arousable was answering questions appropriately. Continues to complain of left-sided weakness. Denies any chest pain, difficulty breathing, nausea, vomiting, abdominal pain. Objective - Vital Signs Vital signs: Vital Signs Temp 97.6 F 10/02/16 08:00 Pulse 79 10/02/16 08:00 Resp 16 10/02/16 08:00 BP 142/59 10/02/16 08:00 Pulse Ox 93 L 10/02/16 08:00 Intake & Output 10/01/16 10/02/16 10/02/16 18:59 06:59 18:59 Intake Total 360 0 Output Total 350 550 Balance 10 -550 0 Weight 85 kg 82 kg Intake: Oral 360 0 Output: Urine 350 550 Other: Voiding Method Bedside Commode Bedside Commode Bedside Commode Bedpan Bedpan Bedpan Diaper # Voids 1 1 - Exam Gen. appearance slightly drowsy however answers questions appropriately Neck is supple no JVD Heart S1-S2 heart regular rate and rhythm no murmurs. Lungs good air entry clear to auscultation Abdomen is soft nontender no organomegaly Lower extremities no edema noted. Neurologic exam Strength is 4 out of 5 on the left upper extremity strength is 5 out of 5 in the left lower extremity right upper and lower extremity strength is good. There is some dysdiadochokinesia. Fine motor skills are slightly affected. Assessment and Plan Plan: #1 acute right MCA territory CVA causing left-sided weakness #2 Acute delirium #3 diabetic ketoacidosis that is currently improved #4 history of hypertension #5 dyslipidemia #6 CAD #7 history of chronic diverticulosis #8 moderate aortic stenosis #9 urinary tract infection with MSSA. No new overnight events. Continue seroquel 50 mg at bedtime. Patient will be discharged to inpatient rehab at this time. Patient Condition at Discharge: Serious Plan - Discharge Summary New Discharge Prescriptions: Cephalexin [Keflex] 250 mg PO QID #10 cap Discharge Medication List Insulin Glargine [Lantus] 40 unit SQ HS 07/17/15 [History] Nitroglycerin Sl Tabs [Nitrostat] 0.4 mg SUBLINGUAL Q5M PRN #25 tab 07/22/15 [Rx ] INSULIN LISPRO (humaLOG) [humaLOG (formulary)] 12 units SQ AC-LUNCH 07/27/16 [ History] Lisinopril [Prinivil] 20 mg PO DAILY 07/27/16 [History] Atorvastatin [Lipitor] 40 mg PO DAILY #30 tab 07/30/16 [Rx] Carvedilol [Coreg*] 25 mg PO BID-W/MEALS #60 tab 07/30/16 [Rx] Clopidogrel [Plavix] 75 mg PO DAILY #30 tab 07/30/16 [Rx] Aspirin EC [Ecotrin] 325 mg PO HS 09/28/16 [History] Cephalexin [Keflex] 250 mg PO QID #10 cap 10/04/16 [Rx] QUEtiapine [SEROquel] 50 mg PO HS tab 10/04/16 [Rx] Follow up Appointment(s)/Referral(s): Marry Palomo MD [STAFF PHYSICIAN] - 1 Week Malcolm Phan MD [Primary Care Provider] - 1-2 days Patient Instructions/Handouts: Ischemic Stroke (DC), Stroke (DC) Discharge Disposition: OTHER INSTITUTION NOT DEFINED
--- NOTE | 2016-10-04 15:18 | P.PN ---
Subjective This patient is a 75-year-old right-handed white female who was initially evaluated in the intensive care unit for acute left-sided weakness. She underwent a complete stroke evaluation which included an MRI of the brain. MRI of the brain revealed the patient to have suffered a right hemispheric stroke. She did show improvement in terms of her left-sided weakness but continues to have some residual deficit. She has a history of previous stroke as well. She is currently on a combination of Plavix and aspirin for secondary stroke prevention. Apparently yesterday evening the patient became very confused and disoriented. She was having visual hallucinations. She was seen by psychiatry who recommended starting her on Seroquel for further management of ICU delirium. Psychiatry also feels she may have a component of multi-infarct dementia. Her delirium has shown some improvement today. She is resting comfortably today. She continues to have some left-sided weakness. She is showing signs of cognitive impairment likely secondary to her previous history of stroke and vascular changes on MRI imaging. Patient does follow some simple commands. She denies any headache today. She is awaiting transfer to the inpatient rehab unit at [facility] possibly today if a be is available. Patient with possible discharge to [facility] later today. We will continue close neurological follow-up for the patient during this admission. Objective - Vital Signs Vital signs: Vital Signs Temp 98.0 F 10/04/16 08:18 Pulse 75 10/04/16 08:18 Resp 16 10/04/16 08:18 BP 130/59 10/04/16 08:18 Pulse Ox 90 L 10/04/16 08:18 Intake & Output 10/03/16 10/04/16 10/04/16 18:59 06:59 18:59 Intake Total 1350 120 Output Total 603 3 Balance 747 120 -3 Intake: IV 10 Invasive Line 4 10 Oral 1340 120 Output: Urine 600 Stool 3 3 Other: Voiding Method Bedside Commode Bedside Commode Bedside Commode Diaper Diaper Diaper # Voids 1 - Exam Physical examination: PHYSICAL EXAMINATION: Patient is resting comfortably in bed. VITAL SIGNS: Blood pressure is [155/68]. Heart rate is [87]. Respiration is [16] . Temperature is [97.0]. HEENT: Head is atraumatic, neck is supple, there were no carotid bruits. CHEST: Lungs are clear to auscultation and percussion. CARDIAC: S1, S2 normal rate and rhythm. There is no murmur. ABDOMEN: Soft and nontender. Bowel sounds are present. EXTREMITIES: There is no pedal edema. Peripheral pulses are present. Neurological examination: Patient's neurological examination is unchanged from yesterday. Patient is more awake and alert today. Her speech is much improved. 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 - Labs CBC & Chem 7: 10/03/16 06:06 10/03/16 06:06 Labs: Abnormal Lab Results - Last 24 Hours (Table) 10/03/16 10/03/16 10/04/16 Range/Units 17:16 20:17 07:15 POC Glucose (mg/dL) 250 H 285 H 215 H (75-99) mg/dL 10/04/16 Range/Units 11:50 POC Glucose (mg/dL) 166 H (75-99) mg/dL Assessment and Plan (1) Acute right arterial ischemic stroke, MCA (middle cerebral artery) Status: Acute Code(s): I63.511 - CEREB INFRC D/T UNSP OCCLS OR STENOS OF RIGHT MID CEREB ART (2) Diabetic ketoacidosis Status: Acute Code(s): E13.10 - OTH DIABETES MELLITUS WITH KETOACIDOSIS WITHOUT COMA (3) Transient cerebral ischemia Status: Acute Code(s): G45.9 - TRANSIENT CEREBRAL ISCHEMIC ATTACK, UNSPECIFIED (4) Hyperlipemia Status: Chronic Code(s): E78.5 - HYPERLIPIDEMIA, UNSPECIFIED Plan: This patient is a 75-year-old female initially evaluated in the intensive care unit for acute left-sided weakness. She underwent a stroke evaluation which included MRI imaging of the brain. MRI indicated a acute right MCA stroke. She also developed acute ICU delirium and was transferred out of the ICU. She has been doing fairly well since discharge out of the intensive care unit. She is to continue on Plavix and aspirin for secondary stroke prevention. She was seen by psychiatry who diagnosed her with delirium as well as multi-infarct dementia. She is to continue on Seroquel for further management as per the recommendations of psychiatry. Neurologically she remains relatively intact with left-sided hemiparesthesias. She is being considered for transfer to the inpatient rehab unit at [facility] for ongoing PT OT and speech therapy. Patient likely will be discharge to the rehab unit today or tomorrow. Patient to be discharged to subacute rehab later today. We will continue close neurological follow-up for this patient during this admission. Her overall prognosis at this time remains guarded.
== END 2016-10-04 16:00 | DRG 64 ==
LOC: EC 09:55 → 6ICU 14:22 → 3SUR 09-30 03:08 → 6SEL 09-30 20:37 → 5MS5E 10-03 16:01
PROVIDERS: ADMIT Hospitalist; ATTEND Hospitalist
PROC: 0DH67UZ Insertion of Feeding Device into Stomach, Via Natural or Artificial Opening (ICD-10-PCS; principal; 2016-09-28)
PROC: 3E0G76Z Introduction of Nutritional Substance into Upper GI, Via Natural or Artificial Opening (ICD-10-PCS; 2016-09-28)
PROC: 0T9B70Z Drainage of Bladder with Drainage Device, Via Natural or Artificial Opening (ICD-10-PCS; 2016-09-28)
DX: I63.511 Cerebral infarction due to unspecified occlusion or stenosis of right middle cerebral artery (principal); G93.49 Other encephalopathy; E13.10 Other specified diabetes mellitus with ketoacidosis without coma; F05 Delirium due to known physiological condition; G81.94 Hemiplegia, unspecified affecting left nondominant side; N39.0 Urinary tract infection, site not specified; J98.11 Atelectasis; E11.42 Type 2 diabetes mellitus with diabetic polyneuropathy; R41.89 Other symptoms and signs involving cognitive functions and awareness; R47.01 Aphasia; Z66 Do not resuscitate; J44.9 Chronic obstructive pulmonary disease, unspecified; I35.0 Nonrheumatic aortic (valve) stenosis; F01.50 Vascular dementia, unspecified severity, without behavioral disturbance, psychotic disturbance, mood disturbance, and anxiety; I10 Essential (primary) hypertension; I25.10 Atherosclerotic heart disease of native coronary artery without angina pectoris; I67.9 Cerebrovascular disease, unspecified; B95.61 Methicillin susceptible Staphylococcus aureus infection as the cause of diseases classified elsewhere; R44.1 Visual hallucinations; D72.829 Elevated white blood cell count, unspecified; R47.81 Slurred speech; E86.9 Volume depletion, unspecified; I44.4 Left anterior fascicular block; R00.0 Tachycardia, unspecified; R26.9 Unspecified abnormalities of gait and mobility; K57.90 Diverticulosis of intestine, part unspecified, without perforation or abscess without bleeding; E78.5 Hyperlipidemia, unspecified; R29.810 Facial weakness; M19.91 Primary osteoarthritis, unspecified site; R29.725 NIHSS score 25; K64.9 Unspecified hemorrhoids; M25.559 Pain in unspecified hip; I83.90 Asymptomatic varicose veins of unspecified lower extremity; Z98.42 Cataract extraction status, left eye; Z95.5 Presence of coronary angioplasty implant and graft; Z96.1 Presence of intraocular lens; Z87.891 Personal history of nicotine dependence; Z79.4 Long term (current) use of insulin; Z79.02 Long term (current) use of antithrombotics/antiplatelets; Z80.9 Family history of malignant neoplasm, unspecified; Z79.82 Long term (current) use of aspirin; Z79.899 Other long term (current) drug therapy; Z90.49 Acquired absence of other specified parts of digestive tract; Z86.73 Personal history of transient ischemic attack (TIA), and cerebral infarction without residual deficits; Z82.49 Family history of ischemic heart disease and other diseases of the circulatory system; Z83.3 Family history of diabetes mellitus; Z98.41 Cataract extraction status, right eye; Z89.411 Acquired absence of right great toe; Z86.19 Personal history of other infectious and parasitic diseases; Z87.440 Personal history of urinary (tract) infections; Z71.3 Dietary counseling and surveillance
CPT/HCPCS: 36415; 51702; 70450; 70551; 71010; 80048; 80051; 80053; 81001; 82009; 82550; 82553; 82565; 82947; 83036; 83605; 83735; 84100; 84132; 84484; 84520; 85025; 85610; 85730; 87040; 87077; 87086; 87186; 87502; 93005; 95816; 96361; 96365; 96366; 96367; 96375; 96376; 99291

== ENCOUNTER 2017-03-17 22:47 | Emergency (ER) | payer MEDICARE ==
[2017-03-17] MEDS ORDERED: ACETAMINOPHEN TAB 325 MG TAB PO STA (23:01)
[2017-03-17] MEDS ORDERED: ONDANSETRON 4 MG/2 ML VIAL IVP STA (23:13)
[2017-03-17 23:17] LABS: Basophils % (A) 1 %; CH 27.4; CHCM 31.9; Eosinophils # (A) 0.1 k/uL (0-0.7); Eosinophils % (A) 2 %; HCT 42.3 % (34.0-46.0); HDW 2.64; HGB 13.1 gm/dL (11.4-16.0); Luc # (Auto) 0.06; Luc % (Auto) 1; Lymphocytes # (A) 0.8 k/uL (1.0-4.8); Lymphocytes % (A) 11 %; MCH 26.8 pg (25.0-35.0); MCHC 31.1 g/dL (31.0-37.0); MCV 86.3 fL (80.0-100.0); Mean Platelet Volume 9.8; Monocytes # (A) 0.2 k/uL (0-1.0); Monocytes % (A) 3 %; Neutrophils # (A) 6.2 k/uL (1.3-7.7); Neutrophils % (A) 84 %; RDW 15.7 % (11.5-15.5); WBC 7.4 k/uL (3.8-10.6); WBC (Perox) 7.33
--- NOTE | 2017-03-17 23:20 | ED ---
Weakness HPI - General Chief complaint: Weakness Stated complaint: Weakness/Vomiting Time Seen by Provider: 03/17/17 22:55 Source: patient, family Mode of arrival: wheelchair Limitations: no limitations - History of Present Illness Initial comments: This patient is 76-year-old woman who arrives with a number of complaints, including generalized weakness and fatigue, feeling a little shaky, and nausea. She states all symptoms started tonight about an hour ago while she was just sitting. She states she has had a very mild cough and she feels like she needs to sneeze, otherwise denying symptoms of infection. She does on the review of systems indicate a foot ulcer and state that her son has been doing dressing changes for this. MD Complaint: generalized weakness, lack of energy Onset/Timin -: hour(s) Location: generalized Consistency: constant Improves with: none Worsens with: none Associated Symptoms: nausea/vomiting - Related Data Home Medications Medication Instructions Recorded Confirmed INSULIN LISPRO (humaLOG) [humaLOG See Protocol SQ TID-W/MEALS 07/27/16 03/17/17 (formulary)] Lisinopril [Prinivil] 20 mg PO QAM 07/27/16 03/17/17 Acetaminophen [Tylenol] 1,000 mg PO TID PRN 03/17/17 03/17/17 Aspirin EC [Ecotrin Low Dose] 81 mg PO QAM 03/17/17 03/17/17 Atorvastatin [Lipitor] 40 mg PO HS 03/17/17 03/17/17 Carvedilol [Coreg] 25 mg PO BID-W/MEALS 03/17/17 03/17/17 Insulin Glargine [Lantus] 40 unit SQ HS 03/17/17 03/17/17 Omeprazole [PriLOSEC] 20 mg PO BID 03/17/17 03/17/17 Previous Rx's Medication Instructions Recorded Nitroglycerin Sl Tabs [Nitrostat] 0.4 mg SUBLINGUAL Q5M PRN #25 tab 07/22/15 Levofloxacin [Levaquin] 750 mg PO DAILY #7 tab 03/18/17 Allergies Allergy/AdvReac Type Severity Reaction Status Date / Time No Known Allergies Allergy Verified 07/27/16 19:27 Review of Systems ROS Statement: Those systems with pertinent positive or pertinent negative responses have been documented in the HPI. ROS Other: All systems not noted in ROS Statement are negative. Constitutional: Reports: weakness (Generalized) ENT: Denies: ear pain, throat pain Respiratory: Reports: cough. Denies: dyspnea Cardiovascular: Denies: chest pain, edema, syncope Gastrointestinal: Reports: nausea. Denies: abdominal pain, vomiting, diarrhea Genitourinary: Denies: dysuria, hematuria Musculoskeletal: Denies: back pain Skin: Denies: rash Neurological: Denies: headache, weakness, numbness Past Medical History Past Medical History: Coronary Artery Disease (CAD), Chest Pain / Angina, COPD, CVA/TIA, Dementia, Diabetes Mellitus, Hypertension Additional Past Medical History / Comment(s): Pt admitted to [facility] with slurred speech, expressive aphasia 2ndary to TIA which resolved. During that hospitalization, son states pt had problems with "sun downers" and got up in the night and walked around, AORTIC STENOSIS, murmur, IDDM type II, peripheral neuropathy, UTIs, diverticular disease, hemorrhoids, varicosities, arthritis-c/ o hip pain, past osteomylitis R great toe with toe amputation History of Any Multi-Drug Resistant Organisms: None Reported Past Surgical History: Adenoidectomy, Appendectomy, Cholecystectomy, Heart Catheterization With Stent, Hernia Repair, Tonsillectomy Additional Past Surgical History / Comment(s): Bilateral cataract removal and lens implants, laser eye surgery, umbilical hernia repair, 04/26/15 RIGHT GREAT TOE AMPUTATION, colonoscopy. Past Anesthesia/Blood Transfusion Reactions: No Reported Reaction Additional Past Anesthesia/Blood Transfusion Reaction / Comment(s): no reported recation Date of Last Stent Placement:: 2009 Past Psychological History: No Psychological Hx Reported Smoking Status: Former smoker Past Alcohol Use History: None Reported Past Drug Use History: None Reported - Past Family History Mother History Unknown: Yes Family Medical History: Cancer Father History Unknown: Yes Family Medical History: Coronary Artery Disease (CAD), Diabetes Mellitus General Exam Limitations: no limitations General appearance: alert, in no apparent distress Head exam: Present: atraumatic Eye exam: Present: normal appearance. Absent: scleral icterus, conjunctival injection ENT exam: Present: normal oropharynx Neck exam: Present: normal inspection, full ROM. Absent: meningismus Respiratory exam: Present: normal lung sounds bilaterally, rales (Left base). Absent: respiratory distress, wheezes, rhonchi, stridor, decreased breath sounds Cardiovascular Exam: Present: regular rate, normal rhythm, systolic murmur (. One out of 6 systolic ejection murmur). Absent: diastolic murmur, rubs, gallop GI/Abdominal exam: Present: soft. Absent: tenderness, guarding, rebound, mass Extremities exam: Present: normal inspection, normal capillary refill. Absent: pedal edema, calf tenderness Back exam: Present: normal inspection. Absent: CVA tenderness (R), CVA tenderness (L) Neurological exam: Present: alert Skin exam: Present: warm, dry, intact, normal color, other (Patient has foot ulcer to the plantar aspect of the left foot, approximately 2 cm diameter. No signs of secondary infection at this point.). Absent: rash Course Vital Signs 03/17/17 03/18/17 03/18/17 22:50 00:22 00:47 Temperature 101.1 F H 101.1 F H Pulse Rate 97 85 Respiratory 20 22 Rate Blood Pressure 195/84 120/56 O2 Sat by Pulse 93 L 97 Oximetry EKG Findings - EKG Results: EKG: interpreted by CHANNING, sinus rhythm (Rate 96 bpm), normal QRS, normal ST/T - Blocks, Rule, Hypertrophy, ST Abn: QRS axis and voltage: left axis deviation (-30 to -90) Medical Decision Making - Medical Decision Making Patient is 76-year-old woman who is in with generalized weakness and fatigue as well as feeling shaky. Found to have fever and there is a left lower lobe pneumonia on the chest x-ray and by the exam. She is started on Floxin here. The patient's expressing desire to go home. We did have her ambulate in the department and she is able to do this. Her blood sugar has improved and she is going to watch this closely over the next few days. We discussed return parameters. She'll follow-up to ensure improvement - Lab Data Result diagrams: 03/17/17 23:00 03/17/17 23:00 Lab Results 03/17/17 03/17/17 03/17/17 Range/Units 23:00 23:00 23:00 WBC 7.4 (3.8-10.6) k/uL RBC 4.90 (3.80-5.40) m/uL Hgb 13.1 (11.4-16.0) gm/dL Hct 42.3 (34.0-46.0) % MCV 86.3 (80.0-100.0) fL MCH 26.8 (25.0-35.0) pg MCHC 31.1 (31.0-37.0) g/dL RDW 15.7 H (11.5-15.5) % Plt Count 192 (150-450) k/uL Neutrophils % 84 % Lymphocytes % 11 % Monocytes % 3 % Eosinophils % 2 % Basophils % 1 % Neutrophils # 6.2 (1.3-7.7) k/uL Lymphocytes # 0.8 L (1.0-4.8) k/uL Monocytes # 0.2 (0-1.0) k/uL Eosinophils # 0.1 (0-0.7) k/uL Basophils # 0.0 (0-0.2) k/uL PT (9.0-12.0) sec INR (<1.2) APTT (22.0-30.0) sec Sodium 137 (137-145) mmol/L Potassium 4.6 (3.5-5.1) mmol/L Chloride 98 (98-107) mmol/L Carbon Dioxide 19 L (22-30) mmol/L Anion Gap 20 mmol/L BUN 24 H (7-17) mg/dL Creatinine 0.90 (0.52-1.04) mg/dL Est GFR (MDRD) Af Amer >60 (>60 ml/min/1.73 sqM) Est GFR (MDRD) Non-Af >60 (>60 ml/min/1.73 sqM) Glucose 556 H* (74-99) mg/dL POC Glucose (mg/dL) (75-99) mg/dL POC Glu [employer] Supervisor ID Plasma Lactic Acid Antwon 1.6 (0.7-2.0) mmol/L Calcium 9.8 (8.4-10.2) mg/dL Total Bilirubin 0.5 (0.2-1.3) mg/dL AST 14 (14-36) U/L ALT 29 (9-52) U/L Alkaline Phosphatase 124 (38-126) U/L Total Protein 6.9 (6.3-8.2) g/dL Albumin 3.8 (3.5-5.0) g/dL Urine Color Urine Appearance (Clear) Urine pH (5.0-8.0) Ur Specific [place] (1.001-1.035) Urine Protein (Negative) Urine Glucose (UA) (Negative) Urine Ketones (Negative) Urine Blood (Negative) Urine Nitrite (Negative) Urine Bilirubin (Negative) Urine Urobilinogen (<2.0) mg/dL Ur Leukocyte Esterase (Negative) Urine RBC (0-5) /hpf Urine WBC (0-5) /hpf Amorphous Sediment (None) /hpf 03/17/17 03/17/17 03/18/17 Range/Units 23:00 23:25 01:19 WBC (3.8-10.6) k/uL RBC (3.80-5.40) m/uL Hgb (11.4-16.0) gm/dL Hct (34.0-46.0) % MCV (80.0-100.0) fL MCH (25.0-35.0) pg MCHC (31.0-37.0) g/dL RDW (11.5-15.5) % Plt Count (150-450) k/uL Neutrophils % % Lymphocytes % % Monocytes % % Eosinophils % % Basophils % % Neutrophils # (1.3-7.7) k/uL Lymphocytes # (1.0-4.8) k/uL Monocytes # (0-1.0) k/uL Eosinophils # (0-0.7) k/uL Basophils # (0-0.2) k/uL PT 9.3 (9.0-12.0) sec INR 0.9 (<1.2) APTT 23.7 (22.0-30.0) sec Sodium (137-145) mmol/L Potassium (3.5-5.1) mmol/L Chloride (98-107) mmol/L Carbon Dioxide (22-30) mmol/L Anion Gap mmol/L BUN (7-17) mg/dL Creatinine (0.52-1.04) mg/dL Est GFR (MDRD) Af Amer (>60 ml/min/1.73 sqM) Est GFR (MDRD) Non-Af (>60 ml/min/1.73 sqM) Glucose (74-99) mg/dL POC Glucose (mg/dL) 278 H (75-99) mg/dL POC Glu [employer] Supervisor ID Gwendolyn Newell Plasma Lactic Acid [place] (0.7-2.0) mmol/L Calcium (8.4-10.2) mg/dL Total Bilirubin (0.2-1.3) mg/dL AST (14-36) U/L ALT (9-52) U/L Alkaline Phosphatase (38-126) U/L Total Protein (6.3-8.2) g/dL Albumin (3.5-5.0) g/dL Urine Color Light Yellow Urine Appearance Clear (Clear) Urine pH 5.0 (5.0-8.0) Ur Specific [place] 1.019 (1.001-1.035) Urine Protein 1+ H (Negative) Urine Glucose (UA) 4+ H (Negative) Urine Ketones 2+ H (Negative) Urine Blood Trace H (Negative) Urine Nitrite Negative (Negative) Urine Bilirubin Negative (Negative) Urine Urobilinogen <2.0 (<2.0) mg/dL Ur Leukocyte Esterase Negative (Negative) Urine RBC <1 (0-5) /hpf Urine WBC <1 (0-5) /hpf Amorphous Sediment Rare H (None) /hpf Disposition Clinical Impression: Pneumonia, Hyperglycemia Disposition: HOME SELF-CARE Condition: Fair Instructions: Pneumonia (ED), Diabetic Hyperglycemia (ED) Prescriptions: Levofloxacin [Levaquin] 750 mg PO DAILY #7 tab Referrals: Malcolm Phan MD [Primary Care Provider] - 1-2 days
[2017-03-17 23:27] LABS: INR 0.9 (<1.2); Partial Thromboplastin Time 23.7 sec (22.0-30.0); Prothrombin Time 9.3 sec (9.0-12.0)
[2017-03-17 23:28] LABS: ALT 29 U/L (9-52); AST 14 U/L (14-36); Alkaline Phosphatase 124 U/L (38-126); Anion Gap 20 mmol/L; Blood Urea Nitrogen 24 mg/dL (7-17); Calcium 9.8 mg/dL (8.4-10.2); Carbon Dioxide 19 mmol/L (22-30); Chloride 98 mmol/L (98-107); Non-African American GFR(MDRD) >60 (>60 ml/min/1.73 sqM); Potassium 4.6 mmol/L (3.5-5.1); Sodium 137 mmol/L (137-145); Total Bilirubin 0.5 mg/dL (0.2-1.3); Total Protein 6.9 g/dL (6.3-8.2)
[2017-03-17 23:34] LABS: Amorphous Sediment,Urine Rare /hpf; Appearance,Urine Clear (Clear); Bilirubin,Urine Negative (Negative); Glucose,Urine (UA) 4+ (Negative); Leukocyte Esterase,Urine Negative (Negative); Nitrite,Urine Negative (Negative); Particle Count 10762; Protein,Urine 1+ (Negative); RBC,Urine <1 /hpf (0-5); Specific Gravity,Urine 1.019 (1.001-1.035); UA Billing (MACRO vs. MICRO) MICRO; Urobilinogen,Urine <2.0 mg/dL (<2.0); WBC,Urine <1 /hpf (0-5)
[2017-03-17 23:39] LABS: Glucose 556 mg/dL (74-99)
[2017-03-17] MEDS ORDERED: SODIUM CHLORIDE 0.9% 1,000 ML IV ONE (23:41)
[2017-03-17] MEDS ORDERED: INSULIN REGULAR 100 UNIT/ML VIAL SQ STA (23:41)
[2017-03-17 23:42] LABS: Ketones,Urine 2+ (Negative)
[2017-03-17] MEDS ORDERED: LEVOFLOXACIN 750MG-D5W PMX 750 MG in DEXTROSE/WATER 1 150ML.BAG IVPB STA (23:42)
--- NOTE | 2017-03-18 00:37 | XR ---
EXAM: XR Chest, 1 View CLINICAL HISTORY: Reason: fever TECHNIQUE: Frontal view of the chest. COMPARISON: 10/01/2016 FINDINGS: Lungs: Left basilar atelectasis and/or infiltrates are suggested. Pleural space: Unremarkable. No pneumothorax. Heart: Heart and mediastinum are unchanged. Mediastinum: Unremarkable. Bones/joints: Osseous structures are unchanged. IMPRESSION: Left basilar atelectasis and/or infiltrates are suggested. Clinical correlation recommended
[2017-03-18 01:21] LABS: Glucose,Whole Blood 278 mg/dL (75-99)
[2017-03-18 02:23] VITALS: BP 113/56; PULSE 18; RESP 93; TEMP 100.1
== END 2017-03-18 02:10 | disposition home or self-care (01) ==
LOC: EC 22:47
DX: J18.9 Pneumonia, unspecified organism (principal); E11.65 Type 2 diabetes mellitus with hyperglycemia; I25.10 Atherosclerotic heart disease of native coronary artery without angina pectoris; I10 Essential (primary) hypertension; F03.90 Unspecified dementia, unspecified severity, without behavioral disturbance, psychotic disturbance, mood disturbance, and anxiety; J44.9 Chronic obstructive pulmonary disease, unspecified; Z86.73 Personal history of transient ischemic attack (TIA), and cerebral infarction without residual deficits; Z87.891 Personal history of nicotine dependence; Z79.4 Long term (current) use of insulin; Z79.82 Long term (current) use of aspirin; Z79.899 Other long term (current) drug therapy
CPT/HCPCS: 36415 ×2; 93005; 80053; 83605; 85025; 85610; 85730; 81001; 87040; 87086; 87077; 87186; 71010; 99285; 96365; 96375; J2405; J1956